=== PATIENT | female | born 1985 ===

== ENCOUNTER 2018-01-01 13:45 | Emergency (ER) | payer OTHER ==
[2018-01-01 15:10] VITALS: BMI 27.6
[2018-01-01] MEDS ORDERED: Sodium Chloride 0.9% 1,000 ML IV ONE (16:03)
--- NOTE | 2018-01-01 16:08 | C.PDOC ---
History Of Present Illness 32-year-old female, currently 8 weeks , presents to the ER complaining of vomiting that has progressively worsened for the past 3 weeks. Also reports vague abdominal discomfort but no vaginal bleeding, dysuria, or discharge. Patient is now having difficulty eating and drinking. She last saw her doctor on 12/23 at which time everything was normal. Next appointment is scheduled for 02/03. PMD: Dr. Crow Vanegas Time Seen by Provider: 01/01/18 15:37 Chief Complaint (Nursing): GI Problem History Per: Patient History/Exam Limitations: no limitations Onset/Duration Of Symptoms: Days (x 3 weeks) Current Symptoms Are (Timing): Still Present Past Medical History Reviewed: Historical Data, Nursing Documentation, Vital Signs Vital Signs: Last Vital Signs Temp 98.6 F 01/01/18 15:10 Pulse 64 01/01/18 19:05 Resp 18 01/01/18 19:05 BP 125/66 01/01/18 19:05 Pulse Ox 96 01/01/18 19:05 - Medical History PMH: No Chronic Diseases Surgical History: Family History: States: No Known Family Hx - Social History Hx Alcohol Use: No Hx Substance Use: No - Immunization History Hx Tetanus Toxoid Vaccination: No Hx Influenza Vaccination: Yes Hx Pneumococcal Vaccination: No Review Of Systems Except As Marked, All Systems Reviewed And Found Negative. Constitutional: Negative for: Fever, Chills Gastrointestinal: Positive for: Nausea, Vomiting, Abdominal Pain (discomfort). Negative for: Diarrhea Genitourinary: Negative for: Dysuria, Hematuria, Vaginal Discharge, Vaginal Bleeding Physical Exam - Physical Exam Appears: Non-toxic, No Acute Distress Skin: Normal Color, Warm, Dry Head: Atraumatic, Normacephalic Eye(s): bilateral: Normal Inspection, PERRL, EOMI Nose: Normal Oral Mucosa: Moist Neck: Normal ROM, Supple Chest: Symmetrical Cardiovascular: Rhythm Regular, No Murmur Respiratory: Normal Breath Sounds, No Accessory Muscle Use Gastrointestinal/Abdominal: Soft, Tenderness (mild suprapubic discomfort), No Guarding Back: Normal Inspection, No CVA Tenderness, No Vertebral Tenderness Extremity: Bilateral: Atraumatic, Normal Color And Temperature, Normal ROM Neurological/Psych: Oriented x3, Normal Speech ED Course And Treatment - Laboratory Results Result Diagrams: 01/01/18 16:26 01/01/18 16:26 Lab Interpretation: No Acute Changes O2 Sat by Pulse Oximetry: 100 (RA) Pulse Ox Interpretation: Normal - CT Scan/US Pelvic Ultrasound Other Rad Studies (CT/US): Read By Radiologist, Radiology Report Reviewed CT/US Interpretation: Accession No. : [id number]. Patient Name / ID : AIYANA ROUSSEAU / [id number]. Exam Date : 01/01/2018 18:24:39 ( Approved ). Study Comment : Sex / Age : F / 32Y. Creator : RACHEL MALONE. Dictator : Extern : Environmental Health Aide : RACHEL MALONE. Approver2 : Report Date : 01/01/2018 19:51:00. My Comment : . [facility] Division of Radiology. [address] [place] [address]. Tel. no. . . . Patient Name: SOHAM BRONSON . Pt. Address: [address] [place] [address] Rec #: [id number]. [place] [address]: Shar BRADLEY, Shira Wood. Pt Order Location: [facility] : 1985 Female Age: 32 Order #: [id number]. Reason for exam: with abd pain. . . . . . Ultrasound. . . 1ST TRIMESTER SINGLE Exam Date: 01/01/18. . This imaging exam was performed at [facility]. EXAM: US First Trimester, Transabdominal. . EXAM DATE/ TIME: 01/01/2018 5:47 PM. . CLINICAL HISTORY: 32 years old, female; Pain; complicated by abdominal or pelvic. pain; Generalized abdominal pain ; First trimester; Gestational age or lmp: [id number]; ; Prior surgery; Surgery date: 6+ months; Surgery type: C. -section; Additional info: with abd pain. . TECHNIQUE: Real-time transabdominal obstetrical ultrasound of the maternal pelvis and a. first trimester with image documentation. . COMPARISON: There are no prior studies for comparison. . FINDINGS: Gestation: There is a single gestational sac in the uterus. Gestational sac. has mean diameter of 44.8 mm. [place] rump length measures approximately 16 mm. There is an embryonic heart rate of 158 beats per minute.A yolk sac is present,. internal diameter measures 3 mm. There is a tiny subchorionic hemorrhage. Uterus: Uterus measures approximately 14 x 5.2 x 7.5 cm. Cervix measures. approximately 3.7 cm in length. Ovaries: Right ovary measures approximately 3.8 x 2.6 x 3 cm. There is a. simple cyst in the right ovary.There is expected blood flow on Doppler imaging. Left ovary measures approximately 3.4 x 1.7 x 3 cm. There are small. follicles.There is expected blood flow on Doppler imaging. Free fluid: There is trace free fluid. Bladder: Bladder is almost empty. . . IMPRESSION: 9 weeks 0 day single living intrauterine gestation, estimated date. of delivery 08/06/18; small subchorionic bleed. . . . . . . . . Dictated By: Rachel Pritchett MD., MD. Dictated Date/Time: 01/01/181950. Signed By: Rachel Schmidt MD. Date Signed: 01/01/181950. Transcribed By: [facility]. Transcribe Date/Time: 01/01/181950. ASHUTOSH/DREAD Reevaluation Time: 20:13 Reassessment Condition: Improved Medical Decision Making Medical Decision Making: Time: 16:03 Initial Plan: * Quantitative beta-HCG * CMP * CBC * Urinalysis * IV fluids * Zofran 4 mg IV Disposition Counseled Patient/Family Regarding: Studies Performed, Diagnosis, Need For Followup - Disposition Referrals: [facility] [Outside] Disposition: HOME/ ROUTINE Disposition Time: 20:14 Condition: STABLE Instructions: Bleeding With Forms: Personal (Arabic) - Clinical Impression Clinical Impression: Bleeding in early - Scribe Statement The provider has reviewed the documentation as recorded by the Sarah Dominguez Provider Attestation: All medical record entries made by the Sarah were at my direction and personally dictated by me. I have reviewed the chart and agree that the record accurately reflects my personal performance of the history, physical exam, medical decision making, and the department course for this patient. I have also personally directed, reviewed, and agree with the discharge instructions and disposition.
[2018-01-01 16:34] LABS: BASO % 0.2 % (0.0-2.0); EOS # 0.1 K/uL (0.0-0.7); EOS % 0.6 % (0.0-4.0); HEMOGLOBIN 12.9 g/dL (11.0-16.0); LYMPH % 18.3 % (20.0-40.0); MEAN CELL VOLUME 84.9 fL (81.0-99.0); MEAN CORPUSCULAR HEMOGLOBIN 27.9 pg (27.0-31.0); MEAN CORPUSCULAR HGB CONC 32.8 g/dL (33.0-37.0); MEAN PLATELET VOLUME 8.5 fL (7.2-11.7); MONO # 0.8 K/uL (0.0-0.8); MONO % 7.5 % (0.0-10.0); NEUT # 8.1 K/uL (1.8-7.0); NEUT % 73.4 % (50.0-75.0); RBC 4.63 Mil/uL (3.80-5.20); RED CELL DISTRIBUTION WIDTH 13.8 % (11.5-14.5); SQUAMOUS EPITHIAL 11 /hpf (0-5); URINE BACTERIA RARE (<OCC); URINE BILIRUBIN NEGATIVE (NEGATIVE); URINE BLOOD NEGATIVE (NEGATIVE); URINE CLARITY Hazy (Clear); URINE COLOR Yellow (YELLOW); URINE GLUCOSE (UA) NORMAL (Normal); URINE LEUKOCYTE ESTERASE TRACE Leu/uL (Negative); URINE NITRATE NEGATIVE (NEGATIVE); URINE PROTEIN 1+ mg/dL (NEGATIVE)
[2018-01-01 16:47] LABS: ALB/GLOB RATIO 1.1 (1.0-2.1); ALBUMIN 4.2 g/dL (3.5-5.0); ALT/SGPT 18 U/L (9-52); AST/SGOT 21 U/L (14-36); BLOOD UREA NITROGEN 9 mg/dL (7-17); CALCIUM 9.5 mg/dl (8.6-10.4); GFR AFRICAN-AMERICAN > 60; GFR NON-AFRICAN AMERICAN > 60
[2018-01-01 19:06] VITALS: RESP 18
--- NOTE | 2018-01-01 19:51 | US ---
EXAM: US First Trimester, Transabdominal EXAM DATE/TIME: 01/01/2018 5:47 PM CLINICAL HISTORY: 32 years old, female; Pain; complicated by abdominal or pelvic pain; Generalized abdominal pain; First trimester; Gestational age or lmp: [id number]; ; Prior surgery; Surgery date: 6+ months; Surgery type: C -section; Additional info: with abd pain TECHNIQUE: Real-time transabdominal obstetrical ultrasound of the maternal pelvis and a first trimester with image documentation. COMPARISON: There are no prior studies for comparison. FINDINGS: Gestation: There is a single gestational sac in the uterus. Gestational sac has mean diameter of 44.8 mm. [place] rump length measures approximately 16 mm There is an embryonic heart rate of 158 beats per minute.A yolk sac is present, internal diameter measures 3 mm. There is a tiny subchorionic hemorrhage. Uterus: Uterus measures approximately 14 x 5.2 x 7.5 cm. Cervix measures approximately 3.7 cm in length. Ovaries: Right ovary measures approximately 3.8 x 2.6 x 3 cm. There is a simple cyst in the right ovary.There is expected blood flow on Doppler imaging Left ovary measures approximately 3.4 x 1.7 x 3 cm. There are small follicles.There is expected blood flow on Doppler imaging Free fluid: There is trace free fluid. Bladder: Bladder is almost empty. IMPRESSION: 9 weeks 0 day single living intrauterine gestation, estimated date of delivery 08/06/18; small subchorionic bleed
[2018-01-01 20:40] VITALS: BP 138/69; PULSE 86; TEMP 98; O2SAT 98
== END 2018-01-01 20:40 | disposition home or self-care (01) ==
LOC: C.ER 13:45
DX: O20.9 Hemorrhage in early pregnancy, unspecified (principal); Z3A.09 9 weeks gestation of pregnancy
CPT/HCPCS: 76801; 80053; 81001; 84702; 85025; 96361; 96374; 99285; J2405; J7040

== ENCOUNTER 2018-01-11 09:31 | Emergency (ER) | payer OTHER ==
[2018-01-11 09:31] VITALS: BMI 27.6
[2018-01-11 10:18] LABS: HCG,QUALITATIVE URINE POSITIVE (NEGATIVE)
[2018-01-11 10:22] LABS: BASO % 0.3 % (0.0-2.0); EOS # 0.1 K/uL (0.0-0.7); EOS % 0.7 % (0.0-4.0); HEMOGLOBIN 13.6 g/dL (11.0-16.0); LYMPH # 1.9 K/uL (1.0-4.3); LYMPH % 22.2 % (20.0-40.0); MEAN CELL VOLUME 84.3 fL (81.0-99.0); MEAN CORPUSCULAR HGB CONC 33.2 g/dL (33.0-37.0); MEAN PLATELET VOLUME 8.9 fL (7.2-11.7); MONO # 0.6 K/uL (0.0-0.8); MONO % 6.5 % (0.0-10.0); NEUT # 6.1 K/uL (1.8-7.0); NEUT % 70.3 % (50.0-75.0); RBC 4.87 Mil/uL (3.80-5.20); RED CELL DISTRIBUTION WIDTH 13.5 % (11.5-14.5); WHITE BLOOD COUNT 8.7 K/uL (4.8-10.8)
[2018-01-11] MEDS ORDERED: Sodium Chloride 0.9% 1,000 ML ONE ×2 (10:30→13:35)
[2018-01-11 10:35] LABS: SQUAMOUS EPITHIAL 22 /hpf (0-5); URINE BACTERIA OCC (<OCC); URINE BILIRUBIN NEGATIVE (NEGATIVE); URINE BLOOD NEGATIVE (NEGATIVE); URINE CLARITY Hazy (Clear); URINE GLUCOSE (UA) 1+ mg/dL (Normal); URINE LEUKOCYTE ESTERASE NEG Leu/uL (Negative); URINE PROTEIN 1+ mg/dL (NEGATIVE)
[2018-01-11 10:40] LABS: ALBUMIN 4.1 g/dL (3.5-5.0); ALT/SGPT 17 U/L (9-52); AST/SGOT 27 U/L (14-36); BLOOD UREA NITROGEN 6 mg/dL (7-17); CALCIUM 9.8 mg/dl (8.6-10.4); GFR AFRICAN-AMERICAN > 60; GFR NON-AFRICAN AMERICAN > 60
[2018-01-11 10:41] LABS: URINE COLOR YELLOW (YELLOW)
[2018-01-11] MEDS ORDERED: Sodium Chloride 0.9% 1,000 ML IV STA ×2 (12:30→13:16)
[2018-01-11] MEDS ORDERED: DiphenhydrAMINE 50 mg/ml Inj IVP STA (12:46)
[2018-01-11] MEDS ORDERED: DiphenhydrAMINE 50 mg/ml Inj ONE (12:47)
--- NOTE | 2018-01-11 12:49 | C.PDOC ---
History Of Present Illness 32 year old female presents to the emergency department with a complaint of nausea, vomiting, and morning sickness in setting of known second . Patient states she is not able to drink enough and is urinating less. She cannot hold nothing down. Reports it was the same during her first . Denies any further medical complaints. Time Seen by Provider: 01/11/18 10:00 Chief Complaint (Nursing): Abdominal Pain History Per: Patient History/Exam Limitations: no limitations Past Medical History Reviewed: Historical Data, Nursing Documentation, Vital Signs Vital Signs: Last Vital Signs Temp 98.5 F 01/11/18 12:22 Pulse 83 01/11/18 12:22 Resp 18 01/11/18 12:22 BP 98/65 L 01/11/18 12:22 Pulse Ox 99 01/11/18 12:22 - Medical History PMH: No Chronic Diseases Surgical History: - Social History Hx Alcohol Use: No Hx Substance Use: No - Immunization History Hx Tetanus Toxoid Vaccination: No Hx Influenza Vaccination: Yes Hx Pneumococcal Vaccination: No Review Of Systems Except As Marked, All Systems Reviewed And Found Negative. (As per HPI, othewise negative) Constitutional: Positive for: Other (Morning sickness and urinating less) Gastrointestinal: Positive for: Nausea, Vomiting Physical Exam - Physical Exam Appears: Well, Non-toxic, Toxic Skin: Normal Color, Warm, Dry Head: Atraumatic, Normacephalic Tongue: Normal Appearing Lips: Normal Appearing Teeth: Normal Dentition Gingiva: Normal Appearing Throat: Normal Cardiovascular: Rhythm Regular, No Murmur Respiratory: Normal Breath Sounds, No Decreased Breath Sounds, No Accessory Muscle Use Gastrointestinal/Abdominal: Normal Exam, Soft, No Tenderness Extremity: Normal ROM, No Tenderness, No Pedal Edema Neurological/Psych: Oriented x3 Gait: Steady ED Course And Treatment - Laboratory Results Result Diagrams: 01/11/18 10:15 01/11/18 10:15 O2 Sat by Pulse Oximetry: 99 (RA) Pulse Ox Interpretation: Normal Medical Decision Making Medical Decision Making: Time: 1000 --Beta-HCG, quantitative --CMP --CBC w/ diff --Zofran 4 mg IVP --Reevaluation Time: 1246 --Beta-HC.00 --Reassessment shows that patient develoepd urtical rash to the right arm after taking Zofran. Will be given Benadryl for allergy. --Benadryl 25 mg IVP --Sodium Chloride 1L --urinalysis Disposition - Disposition
--- NOTE | 2018-01-11 13:02 | C.PDOC ---
History Of Present Illness 32 year old female presents to the emergency department with a complaint of nausea, vomiting, and morning sickness in setting of known second . Patient states she is not able to drink enough and is urinating less. She cannot hold nothing down. Reports it was the same during her first . Denies any further medical complaints. Time Seen by Provider: 01/11/18 10:00 Chief Complaint (Nursing): Abdominal Pain History Per: Patient History/Exam Limitations: no limitations Past Medical History Reviewed: Historical Data, Nursing Documentation, Vital Signs Vital Signs: Last Vital Signs Temp 98.5 F 01/11/18 14:42 Pulse 68 01/11/18 15:53 Resp 18 01/11/18 15:53 BP 100/60 01/11/18 15:53 Pulse Ox 98 01/11/18 15:53 - Medical History PMH: No Chronic Diseases Surgical History: Family History: States: No Known Family Hx - Social History Hx Alcohol Use: No Hx Substance Use: No - Immunization History Hx Tetanus Toxoid Vaccination: No Hx Influenza Vaccination: Yes Hx Pneumococcal Vaccination: No Review Of Systems Except As Marked, All Systems Reviewed And Found Negative. (As per HPI, othewise negative) Constitutional: Positive for: Other (morning sickness and urinating less) Gastrointestinal: Positive for: Nausea, Vomiting Physical Exam - Physical Exam Appears: Well, Non-toxic, Toxic Skin: Normal Color, Warm, Dry Head: Atraumatic Tongue: Normal Appearing Lips: Normal Appearing Teeth: Normal Dentition Gingiva: Normal Appearing Throat: Normal Cardiovascular: Rhythm Regular, No Murmur Respiratory: Normal Breath Sounds, No Decreased Breath Sounds, No Accessory Muscle Use Gastrointestinal/Abdominal: Normal Exam, Soft, No Tenderness Extremity: Normal ROM, No Pedal Edema Neurological/Psych: Oriented x3 Gait: Steady ED Course And Treatment - Laboratory Results Result Diagrams: 01/11/18 10:15 01/11/18 10:15 O2 Sat by Pulse Oximetry: 100 (RA) Pulse Ox Interpretation: Normal Medical Decision Making Medical Decision Making: Time: 1000 --Beta-HCG, quantitative --CMP --CBC w/ diff --Zofran 4 mg IVP --Reevaluation Time: 1246 --Beta-HC.00 --Reassessment shows that patient develoepd urtical rash to the right arm after taking Zofran. Will be given Benadryl for allergy. --Benadryl 25 mg IVP --Sodium Chloride 1L --urinalysis Patient tolerated oral fluid, sts she feels better and is ready to be d/c home with OBGYN follow up. Disposition - Disposition Referrals: Crow Vanegas MD [Medical Doctor] - Disposition: HOME/ ROUTINE Disposition Time: 15:35 Condition: IMPROVED Additional Instructions: Follow up with OBGYN within 1-2 days. Return to ED if feel worse. Prescriptions: Doxylamine/Pyridoxine HCl (B6) [Tim Zamarripa 10-10 mg Tablet] 1 each PO PRN PRN # 40 tablet.dr PRN Reason: Nausea/Vomiting Metoclopramide [Reglan] 1 tab PO TID PRN #25 tab PRN Reason: Nausea/Vomiting Instructions: Nausea and Vomiting of Forms: [facility] (Hebrew) Print Language: JAPANESE - Clinical Impression Clinical Impression: Vomiting of
[2018-01-11 14:42] VITALS: RESP 18; TEMP 98.5
[2018-01-11 15:54] VITALS: BP 100/60; PULSE 68
[2018-01-11 16:32] VITALS: O2SAT 100
== END 2018-01-11 15:54 | disposition home or self-care (01) ==
LOC: C.ER 09:31
DX: O21.9 Vomiting of pregnancy, unspecified (principal); Z3A.00 Weeks of gestation of pregnancy not specified
CPT/HCPCS: 80053; 81001; 84702; 84703; 85025; 87086; 96361; 96365; 96375; 99285; J1200; J2405; J2765; J7040

== ENCOUNTER 2019-01-13 09:21 | Outpatient (CLI) | payer OTHER | END 2019-01-13 09:22 | disposition home or self-care (01) | LOC: C.LAB 09:21 | DX: Z00.01 Encounter for general adult medical examination with abnormal findings (principal); R45.89 Other symptoms and signs involving emotional state; J35.1 Hypertrophy of tonsils; E04.9 Nontoxic goiter, unspecified ==

== ENCOUNTER 2019-03-26 18:00 | Inpatient (IN) | payer OTHER ==
[2019-03-26 18:00] VITALS: BMI 27.6
[2019-03-26] MEDS ORDERED: Sodium Chloride 0.9% 1,000 ML IV ONE (19:29)
--- NOTE | 2019-03-26 19:29 | C.PDOC ---
History Of Present Illness Patient presents with sharp stabbing epigastric pain since earlier today associated with five episodes of vomiting. Denies fever or chills. Patient states this has happened before, usually self limits however could not this time. Time Seen by Provider: 03/26/19 19:29 Chief Complaint (Nursing): Abdominal Pain History Per: Patient History/Exam Limitations: no limitations Onset/Duration Of Symptoms: Hrs Current Symptoms Are (Timing): Still Present Severity: Moderate Pain Scale Rating Of: 6 Location Of Pain/Discomfort: Epigastric Radiation Of Pain To:: None Quality Of Discomfort: Sharp, Stabbing Associated Symptoms: Vomiting. denies: Fever, Chills Exacerbating Factors: None Alleviating Factors: None Recent travel outside of the [place]: No Abnormal Vaginal Bleeding: No Past Medical History Reviewed: Historical Data, Nursing Documentation, Vital Signs Vital Signs: Last Vital Signs Temp 99.4 F 03/26/19 18:09 Pulse 77 03/26/19 18:09 Resp 20 03/26/19 18:09 BP 96/58 L 03/26/19 18:09 Pulse Ox 96 03/26/19 18:09 Primary Care Provider: Non [facility] Provider, Surgical History: Family History: States: No Known Family Hx - Social History Hx Alcohol Use: No Hx Substance Use: No - Immunization History Hx Tetanus Toxoid Vaccination: No Hx Influenza Vaccination: Yes Hx Pneumococcal Vaccination: No Review Of Systems Constitutional: Negative for: Fever, Chills Cardiovascular: Negative for: Chest Pain, Palpitations Respiratory: Negative for: Cough, Shortness of Breath Gastrointestinal: Positive for: Vomiting, Abdominal Pain Neurological: Negative for: Weakness, Numbness Physical Exam - Physical Exam Appears: Non-toxic Skin: Warm, Dry Head: Normacephalic Eye(s): bilateral: Normal Inspection Oral Mucosa: Dry Neck: Trachea Midline, Supple Chest: Symmetrical, No Tenderness Cardiovascular: Rhythm Regular Respiratory: No Rales, No Rhonchi, No Wheezing Gastrointestinal/Abdominal: Soft, Tenderness (Epigastric), No Guarding, No Rebound Back: No CVA Tenderness Extremity: No Tenderness Extremity: Bilateral: Atraumatic, Normal Color And Temperature, Normal ROM Pulses: Left Dorsalis Pedis: Normal, Right Dorsalis Pedis: Normal Neurological/Psych: Oriented x3 Gait: Steady ED Course And Treatment - Laboratory Results Result Diagrams: 03/26/19 20:03 03/26/19 20:03 O2 Sat by Pulse Oximetry: 96 (Room air) Pulse Ox Interpretation: Normal Progress Note: EKG, blood work, and urinalysis ordered. IV fluids, morphine, pepcid, toradol, and zofran administered. Disposition Discussed With Dr.: Karlos Lucas Comment: accepted the pt onher service and took over the care at 12:27AM Doctor Will See Patient In The: ED Counseled Patient/Family Regarding: Studies Performed, Diagnosis - Disposition Disposition: HOSPITALIZED Disposition Time: 19:29 Condition: FAIR Forms: [employer] (Ghanaian) - POA Present On Arrival: Poor Glycemic Control - Clinical Impression Clinical Impression: Abdominal pain, Nausea, Acute pancreatitis - Scribe Statement The provider has reviewed the documentation as recorded by the Scribe Donny Bolanos All medical record entries made by the Scribe were at my direction and personally dictated by me. I have reviewed the chart and agree that the record accurately reflects my personal performance of the history, physical exam, medical decision making, and the department course for this patient. I have also personally directed, reviewed, and agree with the discharge instructions and disposition. Decision To Admit - Pt Status Changed To: Hospital Disposition Of: Inpatient - Admit Certification Admit to Inpatient:: After my assessment, the patient will require hospitalization for at least two midnights. This is because of the severity of symptoms shown, intensity of services needed, and/or the medical risk in this patient being treated as an outpatient. - InPatient: Physician Admission Certification:: After my assessment, the patient will require hospitalization for at least two midnights. This is because of the severity of symptoms shown, intensity of services needed, and/or the medical risk in this patient being treated as an outpatient. - . Bed Request Type: Regular Admitting Physician: Karlos Lucas (') Patient Diagnosis: Abdominal pain, Nausea, Acute pancreatitis
[2019-03-26] MEDS ORDERED: Sodium Chloride 0.9% 1,000 ML ONE (19:38)
[2019-03-26 20:09] LABS: BASO % 0.4 % (0.0-2.0); EOS % 0.3 % (0.0-4.0); HEMOGLOBIN 13.3 g/dL (11.0-16.0); LYMPH # 1.2 K/uL (1.0-4.3); LYMPH % 11.5 % (20.0-40.0); MEAN CELL VOLUME 82.1 fL (81.0-99.0); MEAN CORPUSCULAR HEMOGLOBIN 26.8 pg (27.0-31.0); MEAN CORPUSCULAR HGB CONC 32.6 g/dL (33.0-37.0); MEAN PLATELET VOLUME 9.4 fL (7.2-11.7); MONO # 0.4 K/uL (0.0-0.8); MONO % 3.6 % (0.0-10.0); NEUT # 8.6 K/uL (1.8-7.0); NEUT % 84.2 % (50.0-75.0); NRBC % 0.1 % (0.0-2.0); RBC 4.99 Mil/uL (3.80-5.20); RED CELL DISTRIBUTION WIDTH 13.8 % (11.5-14.5); WHITE BLOOD COUNT 10.2 K/uL (4.8-10.8)
[2019-03-26 20:15] LABS: HCG,QUALITATIVE URINE NEGATIVE (NEGATIVE)
[2019-03-26 20:21] LABS: SQUAMOUS EPITHIAL 9 /hpf (0-5); URINE BILIRUBIN NEGATIVE (NEGATIVE); URINE BLOOD NEGATIVE (NEGATIVE); URINE CLARITY Hazy (Clear); URINE COLOR Yellow (YELLOW); URINE GLUCOSE (UA) NORMAL (Normal); URINE LEUKOCYTE ESTERASE NEG Leu/uL (Negative); URINE PROTEIN NEGATIVE (NEGATIVE)
[2019-03-26 20:35] LABS: ALB/GLOB RATIO 1.3 (1.0-2.1); ALBUMIN 4.3 g/dL (3.5-5.0); ALT/SGPT 150 U/L (9-52); AST/SGOT 239 U/L (14-36); BLOOD UREA NITROGEN 9 mg/dL (7-17); CALCIUM 9.5 mg/dl (8.6-10.4); GFR NON-AFRICAN AMERICAN > 60
[2019-03-26 20:37] LABS: INR 1.1; PARTIAL THROMBOPLASTIN TIME 31.7 SECONDS (21-34); PROTHROMBIN TIME 11.8 SECONDS (9.7-12.2)
[2019-03-26] MEDS ORDERED: Iodixanol 320 MG/ML 100 ML BOTTLE IV ONE (21:05)
[2019-03-27 00:03] LABS: LIPASE > 40000 U/L (23-300)
--- NOTE | 2019-03-27 00:29 | CP.PCM.HP ---
<Yesenia Welch - Last Filed: 03/27/19 01:34> History of Present Illness - History of Present Illness History of Present Illness: cc: abdominal pain, vomiting Patient is a 34 year old female with no significant pmhx who presents tot he ED accompanied by her with complaints of severe abdominal pain that started this afternoon followed by many episodes of vomiting. Patient reports similar symptoms of epigastric pain that radiates bilaterally over the past month, lasting approx 15 minutes and then self resolve. Patient reports today's episode was greater in severity with pain in epigastrium radiating laterally as well as lower abdominal pain, and accompanied by 8 episodes of NBNB vomiting. Patient denies history of gallstones or pancreatitis, denies excessive alcohol consumption. Denies chest pain, SOB, diarrhea. pmhx: thyroid nodule, significance unknown pshx: x2, thyroid bx meds: multivitamin allergies: NKDA sochx: social alcohol use(last on saturday), denies tobacco/drug use, lives with family famhx: denies LMP 03/06 Present on Admission - Present on Admission Any Indicators Present on Admission: No Review of Systems - Constitutional Constitutional: absent: Chills, Fever - Cardiovascular Cardiovascular: absent: Chest Pain, Palpitations - Respiratory Respiratory: absent: Cough, Dyspnea - Gastrointestinal Gastrointestinal: Abdominal Pain, Nausea, Vomiting. absent: Constipation, Diarrhea, Hematemesis, Hematochezia, Melena - Genitourinary Genitourinary: absent: Difficulty Urinating, Dysuria - Integumentary Integumentary: absent: Unusual Bruising Past Patient History - Infectious Disease Hx of Infectious Diseases: None - Past Social History Smoking Status: Never Smoked - PSYCHIATRIC Hx Substance Use: No - SURGICAL HISTORY Hx Surgeries: Yes Hx Section: Yes (x1) - ANESTHESIA Hx Anesthesia: Yes Hx Anesthesia Reactions: No Meds Allergies/Adverse Reactions: Allergies Allergy/AdvReac Type Severity Reaction Status Date / Time No Known Allergies Allergy Verified 03/26/19 18:09 Physical Exam - Constitutional Appears: Non-toxic, No Acute Distress - Head Exam Head Exam: ATRAUMATIC, NORMAL INSPECTION, NORMOCEPHALIC - Eye Exam Eye Exam: EOMI, Normal appearance Pupil Exam: NORMAL ACCOMODATION, PERRL - ENT Exam ENT Exam: Mucous Membranes Moist, Normal Exam - Neck Exam Neck exam: Positive for: Normal Inspection - Respiratory Exam Respiratory Exam: Clear to Auscultation Bilateral, NORMAL BREATHING PATTERN - Cardiovascular Exam Cardiovascular Exam: REGULAR RHYTHM, +S1, +S2. absent: Tachycardia - GI/Abdominal Exam GI & Abdominal Exam: Normal Bowel Sounds, Soft, Tenderness. absent: Distended Additional comments: TTP epigastrium, LUQ, RUQ - Extremities Exam Extremities exam: Positive for: normal inspection. Negative for: calf tenderness, pedal edema - Back Exam Back exam: NORMAL INSPECTION - Neurological Exam Neurological exam: Alert, Oriented x3 - Psychiatric Exam Psychiatric exam: Normal Affect, Normal Mood - Skin Skin Exam: Dry, Intact, Normal Color, Warm Results - Vital Signs Recent Vital Signs: Last Vital Signs Temp 99.4 F 03/26/19 18:09 Pulse 77 03/26/19 18:09 Resp 20 03/26/19 18:09 BP 96/58 L 03/26/19 18:09 Pulse Ox 96 03/27/19 00:27 - Labs Result Diagrams: 03/26/19 20:03 03/26/19 20:03 Labs: Laboratory Results - last 24 hr 03/26/19 03/26/19 03/26/19 20:03 20:03 20:03 WBC 10.2 D RBC 4.99 Hgb 13.3 Hct 40.9 MCV 82.1 D MCH 26.8 L MCHC 32.6 L RDW 13.8 Plt Count 225 MPV 9.4 Neut % (Auto) 84.2 H Lymph % (Auto) 11.5 L [place] % (Auto) 3.6 Eos % (Auto) 0.3 Baso % (Auto) 0.4 Neut # (Auto) 8.6 H Lymph # (Auto) 1.2 [place] # (Auto) 0.4 Eos # (Auto) 0.0 Baso # (Auto) 0.0 PT 11.8 INR 1.1 APTT 31.7 Sodium Potassium Chloride Carbon Dioxide Anion Gap BUN Creatinine Est GFR ( Amer) Est GFR (Non-Af Amer) Random Glucose Calcium Total Bilirubin AST ALT Alkaline Phosphatase Total Protein Albumin Globulin Albumin/Globulin Ratio Lipase Urine Color Yellow Urine Clarity Hazy Urine pH 9.0 Ur Specific [place] 1.010 Urine Protein Negative Urine Glucose (UA) Normal Urine Ketones Trace Urine Blood Negative Urine Nitrate Negative Urine Bilirubin Negative Urine Urobilinogen 2.0 H Ur Leukocyte Esterase Neg Urine WBC (Auto) < 1 Urine RBC (Auto) < 1 Ur Squamous Epith Cells 9 H Urine HCG, Qual Negative 03/26/19 20:03 WBC RBC Hgb Hct MCV MCH MCHC RDW Plt Count MPV Neut % (Auto) Lymph % (Auto) [place] % (Auto) Eos % (Auto) Baso % (Auto) Neut # (Auto) Lymph # (Auto) [place] # (Auto) Eos # (Auto) Baso # (Auto) PT INR APTT Sodium 139 Potassium 3.6 Chloride 101 Carbon Dioxide 27 Anion Gap 15 BUN 9 Creatinine 0.6 L Est GFR ( Amer) > 60 Est GFR (Non-Af Amer) > 60 Random Glucose 121 H D Calcium 9.5 Total Bilirubin 1.1 AST 239 H D ALT 150 H D Alkaline Phosphatase 99 Total Protein 7.6 Albumin 4.3 Globulin 3.4 Albumin/Globulin Ratio 1.3 Lipase > 32528 H Urine Color Urine Clarity Urine pH Ur Specific [place] Urine Protein Urine Glucose (UA) Urine Ketones Urine Blood Urine Nitrate Urine Bilirubin Urine Urobilinogen Ur Leukocyte Esterase Urine WBC (Auto) Urine RBC (Auto) Ur Squamous Epith Cells Urine HCG, Qual Assessment & Plan (1) Acute pancreatitis Assessment and Plan: CT A/P(03/26/19): prelim read GB is predominantly decompressed however demonstrates wall thickening and/or pericholecystic fluid. There is suggestion of a small gallstone near the fundus. There is fatty stranding and a small amount of fluid near the pancreas most compatible with acute pancreatitis. No organized fluid collection seen. Suggestion of possible wall thickening at the distal rectum, versus under- distension. Questionable focal narrowing versus focal contraction slightly more proximally in the rectum. Mild constipation more proximally in the colon -f/u official report -no leukocytosis, hyperglycemia, age<55, glucose<200, AST<250, LDH unknown. Bruce's score on admission: 0~unlikely severe pancreatitis -lipase> 40,000 -NPO -IVF; NS @150 -pain medication prn: Toradol moderate, morphine severe -antiemetics: zofran prn -f/u RUQ US, r/o gallstone pancreatitis -f/u lipase, amylase, LDH -GI consult, Dr. Ruby Status: Acute (2) Prophylactic measure Assessment and Plan: GI: protonix ivp VTE: SCDs Status: Acute - Assessment and Plan (Free Text) Assessment: Discussed w/ Dr. Lucas -Yesenia Welch, PGY-1 <Karlos Lucas - Last Filed: 03/27/19 04:16> Results - Vital Signs Recent Vital Signs: Last Vital Signs Temp 97.9 F 03/27/19 01:00 Pulse 62 03/27/19 01:00 Resp 20 03/27/19 01:00 BP 112/75 03/27/19 01:00 Pulse Ox 98 03/27/19 01:00 - Labs Result Diagrams: 03/26/19 20:03 03/26/19 20:03 Labs: Laboratory Results - last 24 hr 03/26/19 03/26/19 03/26/19 20:03 20:03 20:03 WBC 10.2 D RBC 4.99 Hgb 13.3 Hct 40.9 MCV 82.1 D MCH 26.8 L MCHC 32.6 L RDW 13.8 Plt Count 225 MPV 9.4 Neut % (Auto) 84.2 H Lymph % (Auto) 11.5 L [place] % (Auto) 3.6 Eos % (Auto) 0.3 Baso % (Auto) 0.4 Neut # (Auto) 8.6 H Lymph # (Auto) 1.2 [place] # (Auto) 0.4 Eos # (Auto) 0.0 Baso # (Auto) 0.0 PT 11.8 INR 1.1 APTT 31.7 Sodium Potassium Chloride Carbon Dioxide Anion Gap BUN Creatinine Est GFR ( Amer) Est GFR (Non-Af Amer) Random Glucose Calcium Total Bilirubin AST ALT Alkaline Phosphatase Total Protein Albumin Globulin Albumin/Globulin Ratio Lipase Urine Color Yellow Urine Clarity Hazy Urine pH 9.0 Ur Specific [place] 1.010 Urine Protein Negative Urine Glucose (UA) Normal Urine Ketones Trace Urine Blood Negative Urine Nitrate Negative Urine Bilirubin Negative Urine Urobilinogen 2.0 H Ur Leukocyte Esterase Neg Urine WBC (Auto) < 1 Urine RBC (Auto) < 1 Ur Squamous Epith Cells 9 H Urine HCG, Qual Negative 03/26/19 20:03 WBC RBC Hgb Hct MCV MCH MCHC RDW Plt Count MPV Neut % (Auto) Lymph % (Auto) [place] % (Auto) Eos % (Auto) Baso % (Auto) Neut # (Auto) Lymph # (Auto) [place] # (Auto) Eos # (Auto) Baso # (Auto) PT INR APTT Sodium 139 Potassium 3.6 Chloride 101 Carbon Dioxide 27 Anion Gap 15 BUN 9 Creatinine 0.6 L Est GFR ( Amer) > 60 Est GFR (Non-Af Amer) > 60 Random Glucose 121 H D Calcium 9.5 Total Bilirubin 1.1 AST 239 H D ALT 150 H D Alkaline Phosphatase 99 Total Protein 7.6 Albumin 4.3 Globulin 3.4 Albumin/Globulin Ratio 1.3 Lipase > 61050 H Urine Color Urine Clarity Urine pH Ur Specific [place] Urine Protein Urine Glucose (UA) Urine Ketones Urine Blood Urine Nitrate Urine Bilirubin Urine Urobilinogen Ur Leukocyte Esterase Urine WBC (Auto) Urine RBC (Auto) Ur Squamous Epith Cells Urine HCG, Qual Attending/Attestation - Attestation I have fully participated in the care of the patient.: Yes I have reviewed all pertinent clinical information: Yes Notes (Text): 03/27/19 04:15 pt was personally seen and maneged with resident by me.
[2019-03-27] MEDS: Sodium Chloride 0.9% 1,000 ML IV SCH ×2 (01:24→09:53)
[2019-03-27 07:41] LABS: BASO % 0.2 % (0.0-2.0); EOS # 0.1 K/uL (0.0-0.7); EOS % 0.8 % (0.0-4.0); HEMOGLOBIN 11.4 g/dL (11.0-16.0); LYMPH # 1.6 K/uL (1.0-4.3); LYMPH % 20.4 % (20.0-40.0); MEAN CELL VOLUME 83.5 fL (81.0-99.0); MEAN CORPUSCULAR HEMOGLOBIN 27.8 pg (27.0-31.0); MEAN CORPUSCULAR HGB CONC 33.3 g/dL (33.0-37.0); MEAN PLATELET VOLUME 9.5 fL (7.2-11.7); MONO # 0.5 K/uL (0.0-0.8); MONO % 5.9 % (0.0-10.0); NEUT # 5.8 K/uL (1.8-7.0); NEUT % 72.7 % (50.0-75.0); RBC 4.1 Mil/uL (3.80-5.20); RED CELL DISTRIBUTION WIDTH 13.6 % (11.5-14.5)
[2019-03-27 08:05] LABS: ALB/GLOB RATIO 1.2 (1.0-2.1); ALBUMIN 3.3 g/dL (3.5-5.0); ALT/SGPT 115 U/L (9-52); AST/SGOT 111 U/L (14-36); BLOOD UREA NITROGEN 9 mg/dL (7-17); CALCIUM 8.3 mg/dl (8.6-10.4); GFR NON-AFRICAN AMERICAN > 60
[2019-03-27 08:19] LABS: AMYLASE 1459 U/L (30-110)
[2019-03-27 08:40] LABS: LIPASE 5763 U/L (23-300)
--- NOTE | 2019-03-27 08:45 | CT ---
CT abdomen and pelvis HISTORY: Abdominal pain. Elevated liver enzymes. COMPARISON: None available. TECHNIQUE: Multiple contiguous axial images were performed through the abdomen and pelvis with the use of intravenous contrast. Subsequently, sagittal and coronal reformatted images were obtained. This CT exam was performed using one or more of the following dose reduction techniques: Automated exposure control, adjustment of the mA and/or kV according to patient size, and/or use of iterative reconstruction technique. Findings: Lung bases are clear. No pleural or pericardial effusion. Mild intrahepatic biliary ductal dilatation. Cholelithiasis with echogenic focus measuring 4 millimeters at the dependent wall of the gallbladder. Associated gallbladder wall thickening and pericholecystic fluid. These findings may represent an acute cholecystitis. Clinical correlation. Correlation with right upper abdominal ultrasound may be helpful if clinically indicated. Spleen is preserved. Adrenal glands are preserved. Thickened and edematous pancreas with associated peripancreatic fat stranding and fluid suggestive for an acute pancreatitis. Associated reactive thickening of the 2nd portion of the duodenum. Upper abdominal bowel is grossly preserved. Right kidney: No gross calculi or hydronephrosis. Left Kidney: No gross calculi or hydronephrosis. Urinary bladder is preserved. Free fluid within the pelvic cul-de-sac. Heterogeneous uterus and endometrium. Mild thickening of the rectum. Fecal retention in the colon. Appendix is within normal limits. Few shotty para-aortic and inguinal lymph nodes. Few shotty mesenteric lymph nodes. Degenerative changes in the spine. Impression: 1. Findings suggestive for an acute pancreatitis as described above with reactive thickening at the 2nd portion of the duodenum. Clinical correlation. 2. Findings concerning for possible acute cholecystitis. Correlation with right upper quadrant abdominal ultrasound and/or nuclear medicine study may be helpful if clinically indicated. Clinical correlation. 3. Rectal wall thickening. Question focal narrowing versus focal contraction slightly more proximally near the rectum. It is difficult to exclude stricture and/or mass in these regions. Please correlate clinically and if indicated this could be further evaluated with colonoscopy. Clinical correlation. Additional findings as above. A preliminary report was generated at 10:19 p.m. on 03/26/[address] Long Horne from [employer].
--- NOTE | 2019-03-27 09:36 | US ---
Date of service: 03/27/2019 HISTORY: acute pancreatitis, r/o gallstone COMPARISON: None. TECHNIQUE: Sonographic evaluation of the right upper quadrant of the abdomen. FINDINGS: LIVER: Measures 18.7 cm in length. Diffusely increased echogenicity of the liver parenchyma. Consistent with fatty infiltration contour. No mass. No biliary ductal dilatation. GALLBLADDER: Cholelithiasis. No mural thickening. No pericholecystic fluid. Negative sonographic Razo sign. COMMON BILE DUCT: Measures 4 mm. No stones. No dilatation. PANCREAS: Unremarkable as visualized. No mass. No ductal dilatation. RIGHT KIDNEY: Measures 11.7 cm in length. Normal echogenicity. No calculus, mass, or hydronephrosis. AORTA: No aneurysmal dilatation. IVC: Unremarkable. OTHER FINDINGS: None . IMPRESSION: Fatty infiltration liver. Mild hepatomegaly. Cholelithiasis without sonographic evidence of cholecystitis.
[2019-03-27] MEDS ORDERED: Sodium Chloride 0.9% 1,000 ML IV SCH (10:50)
[2019-03-27] MEDS: Lactated Ringer's 1,000 ML IV SCH ×3 (12:08→22:06)
--- NOTE | 2019-03-27 12:23 | CP.PCM.PN ---
<Froy Meeks - Last Filed: 03/27/19 12:28> Subjective - Date & Time of Evaluation Date of Evaluation: 03/27/19 Time of Evaluation: 12:26 - Subjective Subjective: PGY-[address] Yosef Romero Patient seen and examined at bedside. No acute events overnight. Patient reports abdomianl pain is improved, but still present. Denies nausea, vomiting, or diarrhea at present. NPO. Denies chest pain, shortness of breath, headache, abdominal pain, dizziness, numbness, tingling. Objective - Vital Signs/Intake and Output Vital Signs (last 24 hours): Temp Pulse Resp BP Pulse Ox 97.0 F L 66 20 100/64 99 03/27/19 07:00 03/27/19 07:00 03/27/19 07:00 03/27/19 07:00 03/27/19 07:00 Intake and Output: 03/27/19 03/27/19 06:59 18:59 Intake Total 950 Balance 950 - Medications Medications: Current Medications Lactated Ringer's (Lactated Ringer's) 1,000 mls @ 200 mls/hr IV .Q5H COUNT INCLUDES THE [facility] Ketorolac Tromethamine (Toradol) 30 mg IV Q6 PRN PRN Reason: Pain, moderate (4-7) Morphine Sulfate (Morphine) 2 mg IVP Q4H PRN PRN Reason: Pain, severe (8-10) Ondansetron HCl (Zofran Inj) 4 mg IVP Q6 PRN PRN Reason: Nausea/Vomiting Pantoprazole Sodium (Protonix Inj) 40 mg IVP DAILY COUNT INCLUDES THE [facility] Last Admin: 03/27/19 09:53 Dose: 40 mg - Labs Labs: 03/27/19 07:32 03/27/19 07:32 PT 11.8 SECONDS (9.7-12.2) 03/26/19 20:03 INR 1.1 03/26/19 20:03 APTT 31.7 SECONDS (21-34) 03/26/19 20:03 - Constitutional Appears: Non-toxic, No Acute Distress - Head Exam Head Exam: ATRAUMATIC, NORMOCEPHALIC - Eye Exam Eye Exam: EOMI, Normal appearance - ENT Exam ENT Exam: Mucous Membranes Moist - Respiratory Exam Respiratory Exam: Clear to Ausculation Bilateral, NORMAL BREATHING PATTERN. absent: Rales, Wheezes - Cardiovascular Exam Cardiovascular Exam: REGULAR RHYTHM, +S1, +S2 - GI/Abdominal Exam GI & Abdominal Exam: Soft, Tenderness (diffusely moderately tender), Normal Bowel Sounds. absent: Distended - Extremities Exam Extremities Exam: absent: Pedal Edema, Tenderness - Neurological Exam Neurological Exam: Alert, Awake, Oriented x3 - Skin Skin Exam: Dry, Intact Assessment and Plan - Assessment and Plan (Free Text) Assessment: 34 y/o F with no PMHx presents with abdominal pain, found to have acute pancreatitis on CT with initial lipase >40,000 Acute pancreatitis, possibly 2/[address] A/P(03/26/19): 1. Findings suggestive for an acute pancreatitis as described above with reactive thickening at the 2nd portion of the duodenum. Clinical correlation. 2. Findings concerning for possible acute cholecystitis. Correlati on with right upper quadrant abdominal ultrasound and/or nuclear medicine study may be helpful if clinically indicated. Clinical correlation. 3. Rectal wall thickening. Question focal narrowing versus focal contraction slightly more proximally near the rectum. It is difficult to exclude stricture and/or mass in these regions. Please correlate clinically and if indicated this could be further evaluated with colonoscopy. Clinical correlation. -RUQ US: Fatty infiltration liver. Mild hepatomegaly. Cholelithiasis without sonographic evidence of cholecystitis. -no leukocytosis, hyperglycemia, age<55, glucose<200, AST<250, LDH unknown. Bruce's score on admission: 0~unlikely severe pancreatitis -lipase> 40,000 -NPO -IVF; NS @150 -pain medication prn: Toradol moderate, morphine severe -antiemetics: zofran prn -Initial lipase > 40,000 --> 5763 -LDH 364 -Amylase 1459 -GI consult, Dr. Ruby PPx GI: protonix ivp VTE: SCDs Discussed w/ Dr. Yosef Meeks, PGY-1 <Yosef Romero - Last Filed: 03/28/19 16:40> Objective - Vital Signs/Intake and Output Vital Signs (last 24 hours): Temp Pulse Resp BP Pulse Ox 98.7 F 71 20 97/60 L 99 03/28/19 07:00 03/28/19 07:00 03/28/19 07:00 03/28/19 07:00 03/28/19 07:00 Intake and Output: 03/28/19 03/28/19 06:59 18:59 Intake Total 1899 1999 Balance 1899 1999 - Medications Medications: Current Medications Sodium Chloride (Sodium Chloride 0.9%) 1,000 mls @ 100 mls/hr IV .Q10H ANNETTE Ketorolac Tromethamine (Toradol) 30 mg IV Q6 PRN PRN Reason: Pain, severe (8-10) Ketorolac Tromethamine (Toradol) 15 mg IVP Q6 PRN PRN Reason: Pain, moderate (4-7) Ondansetron HCl (Zofran Inj) 4 mg IVP Q6 PRN PRN Reason: Nausea/Vomiting Pantoprazole Sodium (Protonix Inj) 40 mg IVP DAILY COUNT INCLUDES THE [facility] Last Admin: 03/28/19 10:08 Dose: 40 mg - Labs Labs: 03/28/19 06:36 03/28/19 06:36 PT 11.8 SECONDS (9.7-12.2) 03/26/19 20:03 INR 1.1 03/26/19 20:03 APTT 31.7 SECONDS (21-34) 03/26/19 20:03 Attending/Attestation - Attestation I have personally seen and examined this patient.: Yes I have fully participated in the care of the patient.: Yes I have reviewed all pertinent clinical information, including history, physical exam and plan: Yes Notes (Text): 03/28/19 16:40 This is a late entry. Care of this patient was gone over in detail with resident Dr. Meeks. Yosef Romero D.O.
--- NOTE | 2019-03-27 14:17 | CP.PCM.CON ---
History of Present Illness - History of Present Illness History of Present Illness: GI Fellow PGY5 Consult Note This is a 34 year old female with no significant pmhx who presents to the ED with complaints of severe abdominal pain that started this afternoon followed by nonbloody, bilious emesis. Patient reports similar symptoms of epigastric pain that radiates bilaterally over the past few month, lasting approx 15 minutes and then self resolve. She denies pain being associated with food intake, reports pains are usually on an empty stomach early in the morning. Patient reports today's episode was greater in severity, denies any triggers or consumption of fatty meals. Patient denies history of gallstones or pancreatitis, denies excessive alcohol consumption. ROS: A 12pt ROs was negative except as above pmhx: thyroid nodule, significance unknown pshx: x2, thyroid bx sochx: social alcohol use(last on Saturday 2 beers and prior to that months ago, no binge drinking or heavy alcohol), denies tobacco/drug use, lives with family famhx: denies GI cancer Past Patient History - Infectious Disease Hx of Infectious Diseases: None - Past Medical History & Family History Past Medical History?: Yes - Past Social History Smoking Status: Never Smoked - PULMONARY Hx Respiratory Disorders: No - HEMATOLOGICAL/ONCOLOGICAL Hx Blood Disorders: No - MUSCULOSKELETAL/RHEUMATOLOGICAL Hx Musculoskeletal Disorders: No Hx Falls: No - GASTROINTESTINAL Hx Gastrointestinal Disorders: No - GENITOURINARY/GYNECOLOGICAL Hx Genitourinary Disorders: No - PSYCHIATRIC Hx Substance Use: No - SURGICAL HISTORY Hx Surgeries: Yes Hx Section: Yes (x1) - ANESTHESIA Hx Anesthesia: Yes Hx Anesthesia Reactions: No Meds Allergies/Adverse Reactions: Allergies Allergy/AdvReac Type Severity Reaction Status Date / Time No Known Allergies Allergy Verified 03/26/19 18:09 - Medications Medications: Current Medications Lactated Ringer's (Lactated Ringer's) 1,000 mls @ 200 mls/hr IV .Q5H ANNETTE Last Admin: 03/27/19 12:08 Dose: 200 mls/hr Ketorolac Tromethamine (Toradol) 30 mg IV Q6 PRN PRN Reason: Pain, moderate (4-7) Last Admin: 03/27/19 12:11 Dose: 30 mg Morphine Sulfate (Morphine) 2 mg IVP Q4H PRN PRN Reason: Pain, severe (8-10) Ondansetron HCl (Zofran Inj) 4 mg IVP Q6 PRN PRN Reason: Nausea/Vomiting Pantoprazole Sodium (Protonix Inj) 40 mg IVP DAILY ANNETTE Last Admin: 03/27/19 09:53 Dose: 40 mg Physical Exam - Constitutional Appears: Non-toxic, No Acute Distress - Head Exam Head Exam: ATRAUMATIC, NORMAL INSPECTION, NORMOCEPHALIC - Eye Exam Eye Exam: EOMI, Normal appearance, PERRL Pupil Exam: PERRL - ENT Exam ENT Exam: Mucous Membranes Moist, Normal Exam - Neck Exam Neck exam: Positive for: Full Rom, Normal Inspection - Respiratory Exam Respiratory Exam: Clear to Auscultation Bilateral, NORMAL BREATHING PATTERN - Cardiovascular Exam Cardiovascular Exam: REGULAR RHYTHM, RRR, +S1, +S2 - GI/Abdominal Exam GI & Abdominal Exam: Normal Bowel Sounds, Soft, Tenderness. absent: Distended, Firm, Guarding, Organomegaly - Rectal Exam Rectal Exam: Deferred - Extremities Exam Extremities exam: Positive for: full ROM, normal inspection - Back Exam Back exam: FULL ROM, NORMAL INSPECTION - Neurological Exam Neurological exam: Alert, Oriented x3 - Psychiatric Exam Psychiatric exam: Normal Affect, Normal Mood - Skin Skin Exam: Dry, Intact, Normal Color, Warm Results - Vital Signs Recent Vital Signs: Last Vital Signs Temp 97.0 F L 03/27/19 07:00 Pulse 66 03/27/19 07:00 Resp 20 03/27/19 07:00 BP 100/64 03/27/19 07:00 Pulse Ox 99 03/27/19 07:00 - Labs Result Diagrams: 03/27/19 07:32 03/27/19 07:32 Labs: Laboratory Results - last 24 hr 03/26/19 03/26/19 03/26/19 20:03 20:03 20:03 WBC 10.2 D RBC 4.99 Hgb 13.3 Hct 40.9 MCV 82.1 D MCH 26.8 L MCHC 32.6 L RDW 13.8 Plt Count 225 MPV 9.4 Neut % (Auto) 84.2 H Lymph % (Auto) 11.5 L [place] % (Auto) 3.6 Eos % (Auto) 0.3 Baso % (Auto) 0.4 Neut # (Auto) 8.6 H Lymph # (Auto) 1.2 [place] # (Auto) 0.4 Eos # (Auto) 0.0 Baso # (Auto) 0.0 PT 11.8 INR 1.1 APTT 31.7 Sodium Potassium Chloride Carbon Dioxide Anion Gap BUN Creatinine Est GFR ( Amer) Est GFR (Non-Af Amer) Random Glucose Calcium Total Bilirubin AST ALT Alkaline Phosphatase Lactate Dehydrogenase Total Protein Albumin Globulin Albumin/Globulin Ratio Amylase Lipase Urine Color Yellow Urine Clarity Hazy Urine pH 9.0 Ur Specific [place] 1.010 Urine Protein Negative Urine Glucose (UA) Normal Urine Ketones Trace Urine Blood Negative Urine Nitrate Negative Urine Bilirubin Negative Urine Urobilinogen 2.0 H Ur Leukocyte Esterase Neg Urine WBC (Auto) < 1 Urine RBC (Auto) < 1 Ur Squamous Epith Cells 9 H Urine HCG, Qual Negative 03/26/19 03/27/19 03/27/19 20:03 07:32 07:32 WBC 8.0 RBC 4.10 Hgb 11.4 Hct 34.2 MCV 83.5 MCH 27.8 MCHC 33.3 RDW 13.6 Plt Count 203 MPV 9.5 Neut % (Auto) 72.7 Lymph % (Auto) 20.4 [place] % (Auto) 5.9 Eos % (Auto) 0.8 Baso % (Auto) 0.2 Neut # (Auto) 5.8 Lymph # (Auto) 1.6 [place] # (Auto) 0.5 Eos # (Auto) 0.1 Baso # (Auto) 0.0 PT INR APTT Sodium 139 139 Potassium 3.6 3.6 Chloride 101 106 Carbon Dioxide 27 26 Anion Gap 15 11 BUN 9 9 Creatinine 0.6 L 0.6 L Est GFR ( Amer) > 60 > 60 Est GFR (Non-Af Amer) > 60 > 60 Random Glucose 121 H D 88 D Calcium 9.5 8.3 L Total Bilirubin 1.1 0.5 AST 239 H D 111 H D ALT 150 H D 115 H D Alkaline Phosphatase 99 78 Lactate Dehydrogenase 364 Total Protein 7.6 6.0 L Albumin 4.3 3.3 L D Globulin 3.4 2.7 Albumin/Globulin Ratio 1.3 1.2 Amylase 1459 H Lipase > 81192 H 5763 H Urine Color Urine Clarity Urine pH Ur Specific [place] Urine Protein Urine Glucose (UA) Urine Ketones Urine Blood Urine Nitrate Urine Bilirubin Urine Urobilinogen Ur Leukocyte Esterase Urine WBC (Auto) Urine RBC (Auto) Ur Squamous Epith Cells Urine HCG, Qual Assessment & Plan - Assessment and Plan (Free Text) Assessment: 1. Acute Pancreatitis -likely gallstone induced 2. Abd pain, Nausea, Vomiting Plan: -Continue aggressive IVF hydration with LR @200/hr -NPO -Monitor BUN and HCT daily -Once pain improved can consider advancing to clear liquid diet tomorrow -Imaging and Abd US reviewed, +gallstones with elevated LFTs likely from gallstone induced pancreatitis -Pt denies heavy alcohol abuse, recommend checking blood etoh level -Lipid profile from 01/2019 wnl -Trend LFTs -Will need surgical consult for possible cholecystectomy -Will continue to monitor pt
--- NOTE | 2019-03-27 17:00 | CP.PCM.CON ---
<Levi Bennett - Last Filed: 03/27/19 16:47> History of Present Illness - History of Present Illness History of Present Illness: Surgery Consult Note. Dr. Burton 34yo F with no significant PMHx here for evaluation of abdominal pain. Patient started having severe abdominal pain located in the epigastric region which started yesterday at 12p. Associated with Nausea and vomiting x8, non bloody. She denies any fevers or chills. No CP/SOB. No urinary complaints. CT and Abd US finding consistent with cholelithiasis without evidence of cholecystitis. Lipase elevated. She still reports some epigastric tenderness but it has improved. PMHx: Deneis PSHx: x2 Social Hx: Denies Tobacco use, Denies ETOH use, Denies illicit drugs Family Hx: Denies NKDA Review of Systems - Review of Systems All systems: reviewed and no additional remarkable complaints except - Constitutional Constitutional: absent: Chills, Fever - Cardiovascular Cardiovascular: absent: Chest Pain, Dyspnea - Respiratory Respiratory: absent: Cough, Dyspnea - Gastrointestinal Gastrointestinal: Abdominal Pain, Nausea, Vomiting - Genitourinary Genitourinary: absent: Change in Urinary Stream - Musculoskeletal Musculoskeletal: absent: Back Pain Past Patient History - Infectious Disease Hx of Infectious Diseases: None - Past Medical History & Family History Past Medical History?: Yes - Past Social History Smoking Status: Never Smoked Alcohol: None Drugs: Denies - PULMONARY Hx Respiratory Disorders: No - HEMATOLOGICAL/ONCOLOGICAL Hx Blood Disorders: No - MUSCULOSKELETAL/RHEUMATOLOGICAL Hx Musculoskeletal Disorders: No Hx Falls: No - GASTROINTESTINAL Hx Gastrointestinal Disorders: No - GENITOURINARY/GYNECOLOGICAL Hx Genitourinary Disorders: No - PSYCHIATRIC Hx Substance Use: No - SURGICAL HISTORY Hx Surgeries: Yes Hx Section: Yes (x1) - ANESTHESIA Hx Anesthesia: Yes Hx Anesthesia Reactions: No Meds Allergies/Adverse Reactions: Allergies Allergy/AdvReac Type Severity Reaction Status Date / Time No Known Allergies Allergy Verified 03/26/19 18:09 - Medications Medications: Current Medications Lactated Ringer's (Lactated Ringer's) 1,000 mls @ 200 mls/hr IV .Q5H [facility] Last Admin: 03/27/19 12:08 Dose: 200 mls/hr Ketorolac Tromethamine (Toradol) 30 mg IV Q6 PRN PRN Reason: Pain, moderate (4-7) Last Admin: 03/27/19 12:11 Dose: 30 mg Morphine Sulfate (Morphine) 2 mg IVP Q4H PRN PRN Reason: Pain, severe (8-10) Ondansetron HCl (Zofran Inj) 4 mg IVP Q6 PRN PRN Reason: Nausea/Vomiting Pantoprazole Sodium (Protonix Inj) 40 mg IVP DAILY [facility] Last Admin: 03/27/19 09:53 Dose: 40 mg Physical Exam - Constitutional Appears: Well, Non-toxic, No Acute Distress - Head Exam Head Exam: ATRAUMATIC, NORMAL INSPECTION, NORMOCEPHALIC - Eye Exam Eye Exam: EOMI, Normal appearance. absent: Scleral icterus - ENT Exam ENT Exam: Mucous Membranes Moist - Respiratory Exam Respiratory Exam: NORMAL BREATHING PATTERN. absent: Accessory Muscle Use, Respiratory Distress - Cardiovascular Exam Cardiovascular Exam: RRR. absent: JVD - GI/Abdominal Exam GI & Abdominal Exam: Soft. absent: Distended, Firm, Guarding, Rebound, Rigid Additional comments: epigastric tenderness to palpation - Extremities Exam Extremities exam: Positive for: normal inspection. Negative for: calf tenderness - Back Exam Back exam: NORMAL INSPECTION - Neurological Exam Neurological exam: Alert, Oriented x3 - Psychiatric Exam Psychiatric exam: Normal Affect, Normal Mood - Skin Skin Exam: Dry, Intact, Normal Color, Warm Results - Vital Signs Recent Vital Signs: Last Vital Signs Temp 97.0 F L 03/27/19 07:00 Pulse 66 03/27/19 07:00 Resp 20 03/27/19 07:00 BP 100/64 03/27/19 07:00 Pulse Ox 99 03/27/19 07:00 - Labs Result Diagrams: 03/27/19 07:32 03/27/19 07:32 Labs: Laboratory Results - last 24 hr 03/26/19 03/26/19 03/26/19 20:03 20:03 20:03 WBC 10.2 D RBC 4.99 Hgb 13.3 Hct 40.9 MCV 82.1 D MCH 26.8 L MCHC 32.6 L RDW 13.8 Plt Count 225 MPV 9.4 Neut % (Auto) 84.2 H Lymph % (Auto) 11.5 L Heard % (Auto) 3.6 Eos % (Auto) 0.3 Baso % (Auto) 0.4 Neut # (Auto) 8.6 H Lymph # (Auto) 1.2 Heard # (Auto) 0.4 Eos # (Auto) 0.0 Baso # (Auto) 0.0 PT 11.8 INR 1.1 APTT 31.7 Sodium Potassium Chloride Carbon Dioxide Anion Gap BUN Creatinine Est GFR ( Amer) Est GFR (Non-Af Amer) Random Glucose Calcium Total Bilirubin AST ALT Alkaline Phosphatase Lactate Dehydrogenase Total Protein Albumin Globulin Albumin/Globulin Ratio Amylase Lipase Urine Color Yellow Urine Clarity Hazy Urine pH 9.0 Ur Specific [place] 1.010 Urine Protein Negative Urine Glucose (UA) Normal Urine Ketones Trace Urine Blood Negative Urine Nitrate Negative Urine Bilirubin Negative Urine Urobilinogen 2.0 H Ur Leukocyte Esterase Neg Urine WBC (Auto) < 1 Urine RBC (Auto) < 1 Ur Squamous Epith Cells 9 H Urine HCG, Qual Negative 03/26/19 03/27/19 03/27/19 20:03 07:32 07:32 WBC 8.0 RBC 4.10 Hgb 11.4 Hct 34.2 MCV 83.5 MCH 27.8 MCHC 33.3 RDW 13.6 Plt Count 203 MPV 9.5 Neut % (Auto) 72.7 Lymph % (Auto) 20.4 Heard % (Auto) 5.9 Eos % (Auto) 0.8 Baso % (Auto) 0.2 Neut # (Auto) 5.8 Lymph # (Auto) 1.6 Heard # (Auto) 0.5 Eos # (Auto) 0.1 Baso # (Auto) 0.0 PT INR APTT Sodium 139 139 Potassium 3.6 3.6 Chloride 101 106 Carbon Dioxide 27 26 Anion Gap 15 11 BUN 9 9 Creatinine 0.6 L 0.6 L Est GFR ( Amer) > 60 > 60 Est GFR (Non-Af Amer) > 60 > 60 Random Glucose 121 H D 88 D Calcium 9.5 8.3 L Total Bilirubin 1.1 0.5 AST 239 H D 111 H D ALT 150 H D 115 H D Alkaline Phosphatase 99 78 Lactate Dehydrogenase 364 Total Protein 7.6 6.0 L Albumin 4.3 3.3 L D Globulin 3.4 2.7 Albumin/Globulin Ratio 1.3 1.2 Amylase 1459 H Lipase > 78118 H 5763 H Urine Color Urine Clarity Urine pH Ur Specific [place] Urine Protein Urine Glucose (UA) Urine Ketones Urine Blood Urine Nitrate Urine Bilirubin Urine Urobilinogen Ur Leukocyte Esterase Urine WBC (Auto) Urine RBC (Auto) Ur Squamous Epith Cells Urine HCG, Qual Assessment & Plan - Assessment and Plan (Free Text) Assessment: 34yo F with gallstone pancreatitis Plan: - LFTs trending down - Continue to monitor clinically; Patient will benefit from cholecystectomy during the same admission - Will plan for OR Saturday, 03/30 if patient is agreeable for surgery Further recs as per Dr. Morris PGY2 surgery <Abraham Sanchez - Last Filed: 03/29/19 12:26> Meds - Medications Medications: Current Medications Sodium Chloride (Sodium Chloride 0.9%) 1,000 mls @ 100 mls/hr IV .Q10H [facility] Last Admin: 03/29/19 09:28 Dose: 100 mls/hr Ketorolac Tromethamine (Toradol) 30 mg IV Q6 PRN PRN Reason: Pain, severe (8-10) Ketorolac Tromethamine (Toradol) 15 mg IVP Q6 PRN PRN Reason: Pain, moderate (4-7) Ondansetron HCl (Zofran Inj) 4 mg IVP Q6 PRN PRN Reason: Nausea/Vomiting Pantoprazole Sodium (Protonix Inj) 40 mg IVP DAILY [facility] Last Admin: 03/29/19 09:28 Dose: 40 mg Results - Vital Signs Recent Vital Signs: Last Vital Signs Temp 98.2 F 03/29/19 07:00 Pulse 74 03/29/19 07:00 Resp 20 03/29/19 07:00 BP 106/72 03/29/19 07:00 Pulse Ox 97 03/29/19 07:00 - Labs Result Diagrams: 03/29/19 07:49 03/29/19 07:49 Labs: Laboratory Results - last 24 hr 03/29/19 03/29/19 03/29/19 06:28 07:49 07:49 WBC 7.7 RBC 3.94 Hgb 10.8 L Hct 32.8 L MCV 83.1 MCH 27.5 MCHC 33.0 RDW 13.7 Plt Count 178 MPV 10.3 Neut % (Auto) 71.5 Lymph % (Auto) 20.2 Heard % (Auto) 7.2 Eos % (Auto) 1.0 Baso % (Auto) 0.1 Neut # (Auto) 5.5 Lymph # (Auto) 1.5 Heard # (Auto) 0.6 Eos # (Auto) 0.1 Baso # (Auto) 0.0 PT INR APTT Sodium 137 Potassium 3.5 L Chloride 105 Carbon Dioxide 25 Anion Gap 10 BUN 4 L Creatinine 0.5 L Est GFR ( Amer) > 60 Est GFR (Non-Af Amer) > 60 Random Glucose 84 Calcium 8.5 L Total Bilirubin 0.6 AST 29 ALT 61 H D Alkaline Phosphatase 69 Total Protein 6.1 L Albumin 3.2 L Globulin 2.9 Albumin/Globulin Ratio 1.1 Urine HCG, Qual Negative Blood Type Antibody Screen 03/29/19 03/29/19 07:49 07:49 WBC RBC Hgb Hct MCV MCH MCHC RDW Plt Count MPV Neut % (Auto) Lymph % (Auto) Heard % (Auto) Eos % (Auto) Baso % (Auto) Neut # (Auto) Lymph # (Auto) Heard # (Auto) Eos # (Auto) Baso # (Auto) PT 13.3 H INR 1.2 APTT 31.2 Sodium Potassium Chloride Carbon Dioxide Anion Gap BUN Creatinine Est GFR ( Amer) Est GFR (Non-Af Amer) Random Glucose Calcium Total Bilirubin AST ALT Alkaline Phosphatase Total Protein Albumin Globulin Albumin/Globulin Ratio Urine HCG, Qual Blood Type O POSITIVE Antibody Screen Negative Assessment & Plan - Assessment and Plan (Free Text) Plan: All medical record entries made by the resident were at my direction. I have reviewed the chart and agree that the record accurately reflects my personal performance of the history, physical exam, and medical decision making.
[2019-03-28] MEDS: Lactated Ringer's 1,000 ML IV SCH ×3 (03:31→14:54)
[2019-03-28 06:54] LABS: BASO % 0.2 % (0.0-2.0); EOS # 0.1 K/uL (0.0-0.7); EOS % 1.3 % (0.0-4.0); HEMOGLOBIN 10.7 g/dL (11.0-16.0); LYMPH # 1.7 K/uL (1.0-4.3); LYMPH % 20.4 % (20.0-40.0); MEAN CELL VOLUME 83.4 fL (81.0-99.0); MEAN CORPUSCULAR HEMOGLOBIN 27.6 pg (27.0-31.0); MEAN CORPUSCULAR HGB CONC 33.1 g/dL (33.0-37.0); MEAN PLATELET VOLUME 9.9 fL (7.2-11.7); MONO # 0.5 K/uL (0.0-0.8); MONO % 6.2 % (0.0-10.0); NEUT # 5.9 K/uL (1.8-7.0); NEUT % 71.9 % (50.0-75.0); RBC 3.86 Mil/uL (3.80-5.20); RED CELL DISTRIBUTION WIDTH 13.9 % (11.5-14.5); WHITE BLOOD COUNT 8.2 K/uL (4.8-10.8)
[2019-03-28 06:58] LABS: ALB/GLOB RATIO 1.1 (1.0-2.1); ALT/SGPT 81 U/L (9-52); AST/SGOT 43 U/L (14-36); BLOOD UREA NITROGEN 5 mg/dL (7-17); CALCIUM 8.5 mg/dl (8.6-10.4); GFR NON-AFRICAN AMERICAN > 60; HDL CHOLESTEROL 38 mg/dL (30-70)
[2019-03-28 07:08] LABS: LDL CHOLESTEROL 93 mg/dL (0-129)
--- NOTE | 2019-03-28 08:04 | CP.PCM.PN ---
Subjective - Date & Time of Evaluation Date of Evaluation: 03/28/19 Time of Evaluation: 08:00 - Subjective Subjective: Hospitalist Progress Note Patient was seen and examined at 8:00 AM Bed 651 B on 03/28/19 Portuguese Interpretation provided by EDMOND Rodriguez ID #[id number] HPI: 34 year old female who is currently being treated for Acute Pancretitis likely secondary to Gallstone Pancreatitis Review of Systems: Clear liquid diet started on evening 03/27/19. She has not had an nausea/vomiting since starting this diet. She explains that upon awakening this morning her epigastric abdominal pain was 7/[address] after having her breakfast. She is concerned about having laporascopic cholecystectomy as recommended by Surgery Team as she has had dizziness in the past after receiving sedation for a [employer] procedure: explained that dizziness can be normal and expected after sedation/anesthesia but we would certainly monitor to her and provide medication for it as needed after the procedure She is teary and sad as she is away from her two children (3 months old and 3 years old): explained to her that we would do our best to get her home as quickly as possible after the cholecystectomy as long as she was stable to do so. She complained about a sensation that her left palm/hand felt like it was swollen, and this sensation has occurred in the past and has currently resolved. She has not had a bowel movement since Saturday and stated that she has had history of constipation when she has not gone for upto 1 week and these episodes resolve with taking fiber There are NO other complaints upon FULL ROS Exam: HEENT: NCA, EOMI, PERRLA, NO cervical/supraclavicular/submandibular lymphadenopathy, NO thyromegaly Cardio: NS1 and NS2, NO M/R/G Resp: CTA B/L, NO R/R/W GI: BSx4, Soft, ND, NO HSM, Tenderness to Deep Palpation in the Epigastric area however this is significantly less than exam on 03/27/19 and there is NO guarding and NO rebound tenderness Ext: NO edema noted in the bilateral UE and LE, Pulses are strong and equal, Capillary Refill is 2 seconds, Normal coloration and temperature Neuro: CN II through XII are grossly intact Assessment and Plan: 1). Acute Pancreatitis Status: Acute Radiology Studies: * CT Abdomen/Pelvis 03/27/19: finding suggestive acute pancreatitis with reactive thickening at the 2nd portion of the duodenum. Findings concerning for acute cholecystitis. Rectal wall thickening, question focal narrowing versus focal contraction slightly more proximally near the rectum. It is difficult to exclude stricture or mass in these regions. * GallBladder U/S 03/27/19: fatty liver, mild hepatomegaly, cholelithiasis without sonographic evidence of cholecystitis Medications: * Toradol 15 mg IV Q6H PRN Moderate Pain * Toradol 30 mg IV Q6H PRN Severe Pain * Zofran 4 mg IV Q6H PRN Nausea/Vomiting * NS at 100 ml/hr Started clear liquid diet on 03/27/19 afternoon as pain had improved and patient was hungry Spoke with [employer] Volodymyr: plan is for Laparoscopic Cholecystectomy on Saturday03/29/[address] Sanchez NPO after midnight on 03/28/19. Patient is agreeable for Laparoscopic Cholecystectomy after going over the procedure with her 2). Prophylaxis Status: Acute Clear liquid diet Protonix 40 mg IV Q24H Discussed plan with Nurse Ray Disposition: For Larparscopic Cholecystectomy on Saturday03/29/19 Yosef Romero D.O. [phone] Objective - Vital Signs/Intake and Output Vital Signs (last 24 hours): Temp Pulse Resp BP Pulse Ox 98.6 F 72 20 104/67 98 03/27/19 23:00 03/27/19 23:00 03/27/19 23:00 03/27/19 23:00 03/27/19 23:00 Intake and Output: 03/28/19 03/28/19 06:59 18:59 Intake Total 1900 Balance 1900 - Medications Medications: Current Medications Lactated Ringer's (Lactated Ringer's) 1,000 mls @ 200 mls/hr IV .Q5H [facility] Last Admin: 03/28/19 03:31 Dose: 200 mls/hr Ketorolac Tromethamine (Toradol) 30 mg IV Q6 PRN PRN Reason: Pain, moderate (4-7) Last Admin: 03/27/19 22:04 Dose: 30 mg Morphine Sulfate (Morphine) 2 mg IVP Q4H PRN PRN Reason: Pain, severe (8-10) Ondansetron HCl (Zofran Inj) 4 mg IVP Q6 PRN PRN Reason: Nausea/Vomiting Pantoprazole Sodium (Protonix Inj) 40 mg IVP DAILY [facility] Last Admin: 03/27/19 09:53 Dose: 40 mg - Labs Labs: 03/28/19 06:36 03/28/19 06:36 PT 11.8 SECONDS (9.7-12.2) 03/26/19 20:03 INR 1.1 03/26/19 20:03 APTT 31.7 SECONDS (21-34) 03/26/19 20:03
--- NOTE | 2019-03-28 08:46 | CP.PCM.PN ---
<Volodymyr Cooper - Last Filed: 03/28/19 08:44> Subjective - Date & Time of Evaluation Date of Evaluation: 03/28/19 Time of Evaluation: 08:44 - Subjective Subjective: Surgery Progress Note for Dr. Burton 34F seen and evaluated at bedside this morning. No acute events overnight. Complaints of abdominal pain that is improving. No nausea or vomiting. Denies f/c, diarrhea, SOB, CP, or urinary symptoms. Objective - Vital Signs/Intake and Output Vital Signs (last 24 hours): Temp Pulse Resp BP Pulse Ox 98.7 F 71 20 97/60 L 99 03/28/19 07:00 03/28/19 07:00 03/28/19 07:00 03/28/19 07:00 03/28/19 07:00 Intake and Output: 03/28/19 03/28/19 06:59 18:59 Intake Total 1900 Balance 1900 - Medications Medications: Current Medications Lactated Ringer's (Lactated Ringer's) 1,000 mls @ 200 mls/hr IV .Q5H [facility] Last Admin: 03/28/19 03:31 Dose: 200 mls/hr Potassium Chloride (Potassium Chloride 20 Meq/100 Ml) 20 meq in 100 mls @ 50 mls/hr IVPB ONCE ONE Stop: 03/28/19 10:59 Ketorolac Tromethamine (Toradol) 30 mg IV Q6 PRN PRN Reason: Pain, moderate (4-7) Last Admin: 03/27/19 22:04 Dose: 30 mg Morphine Sulfate (Morphine) 2 mg IVP Q4H PRN PRN Reason: Pain, severe (8-10) Ondansetron HCl (Zofran Inj) 4 mg IVP Q6 PRN PRN Reason: Nausea/Vomiting Pantoprazole Sodium (Protonix Inj) 40 mg IVP DAILY [facility] Last Admin: 03/27/19 09:53 Dose: 40 mg - Labs Labs: 03/28/19 06:36 03/28/19 06:36 PT 11.8 SECONDS (9.7-12.2) 03/26/19 20:03 INR 1.1 03/26/19 20:03 APTT 31.7 SECONDS (21-34) 03/26/19 20:03 - Constitutional Appears: Well, Non-toxic, No Acute Distress - Head Exam Head Exam: ATRAUMATIC, NORMAL INSPECTION, NORMOCEPHALIC - Eye Exam Eye Exam: EOMI Pupil Exam: PERRL - ENT Exam ENT Exam: Mucous Membranes Moist - Respiratory Exam Respiratory Exam: NORMAL BREATHING PATTERN. absent: Wheezes, Respiratory Distress - Cardiovascular Exam Cardiovascular Exam: REGULAR RHYTHM, +S1, +S2. absent: Murmur - GI/Abdominal Exam GI & Abdominal Exam: Soft, Tenderness, Normal Bowel Sounds. absent: Distended, Guarding, Rebound - Neurological Exam Neurological Exam: Alert, Awake, Oriented x3 - Psychiatric Exam Psychiatric exam: Normal Affect, Normal Mood - Skin Skin Exam: Dry, Intact, Normal Color, Warm Assessment and Plan - Assessment and Plan (Free Text) Assessment: 34F w/ gallstone pancreatitis Plan: Will prepare for OR tomorrow Continue to monitor for clinical improvement NPO past midnight IVF Antiemetics and analgesics PRN Coags, CXR D/w Dr. Coffey PGY1 <Abraham Sanchez - Last Filed: 03/29/19 12:23> Objective - Vital Signs/Intake and Output Vital Signs (last 24 hours): Temp Pulse Resp BP Pulse Ox 98.2 F 74 20 106/72 97 03/29/19 07:00 03/29/19 07:00 03/29/19 07:00 03/29/19 07:00 03/29/19 07:00 Intake and Output: 03/29/19 03/29/19 06:59 18:59 Intake Total 1150 Balance 1150 - Medications Medications: Current Medications Sodium Chloride (Sodium Chloride 0.9%) 1,000 mls @ 100 mls/hr IV .Q10H [facility] Last Admin: 03/29/19 09:28 Dose: 100 mls/hr Ketorolac Tromethamine (Toradol) 30 mg IV Q6 PRN PRN Reason: Pain, severe (8-10) Ketorolac Tromethamine (Toradol) 15 mg IVP Q6 PRN PRN Reason: Pain, moderate (4-7) Ondansetron HCl (Zofran Inj) 4 mg IVP Q6 PRN PRN Reason: Nausea/Vomiting Pantoprazole Sodium (Protonix Inj) 40 mg IVP DAILY [facility] Last Admin: 03/29/19 09:28 Dose: 40 mg - Labs Labs: 03/29/19 07:49 03/29/19 07:49 PT 13.3 SECONDS (9.7-12.2) H 03/29/19 07:49 INR 1.2 03/29/19 07:49 APTT 31.2 SECONDS (21-34) 03/29/19 07:49 Assessment and Plan - Assessment and Plan (Free Text) Plan: All medical record entries made by the resident were at my direction. I have reviewed the chart and agree that the record accurately reflects my personal performance of the history, physical exam, and medical decision making.
--- NOTE | 2019-03-28 09:49 | RAD ---
HISTORY: preop COMPARISON: None available TECHNIQUE: Chest, one view. FINDINGS: LUNGS: No focal consolidation. Please note that chest x-ray has limited sensitivity for the detection of pulmonary masses. PLEURA: No significant pleural effusion identified. No definite pneumothorax . CARDIOVASCULAR: The cardiomediastinal silhouette appears within normal limits of size. No significant atherosclerotic calcification present. OSSEOUS STRUCTURES: No acute osseous abnormality identified. VISUALIZED UPPER ABDOMEN: Unremarkable. OTHER FINDINGS: None. IMPRESSION: No acute findings identified.
--- NOTE | 2019-03-28 14:15 | CARD ---
APPROVED REPORT Date of service: 03/26/2019 EKG Measurement Heart [id number] <Conclusion> Normal sinus rhythm Normal ECG
[2019-03-28] MEDS: Sodium Chloride 0.9% 1,000 ML IV SCH (15:45)
[2019-03-29] MEDS: Sodium Chloride 0.9% 1,000 ML IV SCH ×4 (01:19→21:30)
--- NOTE | 2019-03-29 07:16 | CP.PCM.PN ---
<Theresa Matthew - Last Filed: 03/29/19 07:35> Subjective - Date & Time of Evaluation Date of Evaluation: 03/29/19 Time of Evaluation: 07:13 - Subjective Subjective: Medicine Note for Hospitalist Service Patient was seen and examined at bedside. Patient reports she feels well. Her pain is intermittent but less severe. Objective - Vital Signs/Intake and Output Vital Signs (last 24 hours): Temp Pulse Resp BP Pulse Ox 99.3 F 66 20 99/63 L 98 03/28/19 23:15 03/28/19 23:15 03/28/19 23:15 03/28/19 23:15 03/28/19 23:15 Intake and Output: 03/29/19 03/29/19 06:59 18:59 Intake Total 1150 Balance 1150 - Medications Medications: Current Medications Sodium Chloride (Sodium Chloride 0.9%) 1,000 mls @ 100 mls/hr IV .Q10H [facility] Last Admin: 03/29/19 01:19 Dose: 100 mls/hr Ketorolac Tromethamine (Toradol) 30 mg IV Q6 PRN PRN Reason: Pain, severe (8-10) Ketorolac Tromethamine (Toradol) 15 mg IVP Q6 PRN PRN Reason: Pain, moderate (4-7) Ondansetron HCl (Zofran Inj) 4 mg IVP Q6 PRN PRN Reason: Nausea/Vomiting Pantoprazole Sodium (Protonix Inj) 40 mg IVP DAILY [facility] Last Admin: 03/28/19 10:08 Dose: 40 mg - Labs Labs: 03/28/19 06:36 03/28/19 06:36 PT 11.8 SECONDS (9.7-12.2) 03/26/19 20:03 INR 1.1 03/26/19 20:03 APTT 31.7 SECONDS (21-34) 03/26/19 20:03 - Constitutional Appears: No Acute Distress - Head Exam Head Exam: NORMAL INSPECTION, NORMOCEPHALIC - Eye Exam Eye Exam: EOMI, Normal appearance, PERRL Pupil Exam: NORMAL ACCOMODATION - ENT Exam ENT Exam: Mucous Membranes Moist - Respiratory Exam Respiratory Exam: Clear to Ausculation Bilateral, NORMAL BREATHING PATTERN. absent: Decreased Breath Sounds, Rhonchi, Wheezes - Cardiovascular Exam Cardiovascular Exam: REGULAR RHYTHM - GI/Abdominal Exam GI & Abdominal Exam: Soft, Tenderness, Normal Bowel Sounds. absent: Distended Additional comments: TTP epigastric and RUQ area, less than when examined the day prior - Extremities Exam Extremities Exam: Normal Inspection. absent: Pedal Edema, Tenderness - Neurological Exam Neurological Exam: Alert, Awake, Oriented x3 - Psychiatric Exam Psychiatric exam: Normal Affect, Normal Mood - Skin Skin Exam: Dry, Intact, Normal Color, Warm Assessment and Plan - Assessment and Plan (Free Text) Plan: Acute Pancreatitis Status: Acute Radiology Studies: * CT Abdomen/Pelvis 03/27/19: finding suggestive acute pancreatitis with reactive thickening at the 2nd portion of the duodenum. Findings concerning for acute cholecystitis. Rectal wall thickening, question focal narrowing versus focal contraction slightly more proximally near the rectum. It is difficult to exclude stricture or mass in these regions. * GallBladder U/S 03/27/19: fatty liver, mild hepatomegaly, cholelithiasis with out sonographic evidence of cholecystitis Medications: * Toradol 15 mg IV Q6H PRN Moderate Pain * Toradol 30 mg IV Q6H PRN Severe Pain * Zofran 4 mg IV Q6H PRN Nausea/Vomiting * NS at 100 ml/hr Management: * NPO after midnight on 03/28/19. * Plan is for Laparoscopic Cholecystectomy on Saturday03/29/[address] Sanchez Prophylaxis * Protonix 40 mg IV Q24H Disposition: Plan is for Laparoscopic Cholecystectomy on Saturday03/29/[address] Sanchez[address] Dr. Yosef Romero DO, Theresa Matthew DO, PGY2 <Yosef Romero J - Last Filed: 03/29/19 09:46> Objective - Vital Signs/Intake and Output Vital Signs (last 24 hours): Temp Pulse Resp BP Pulse Ox 98.2 F 74 20 106/72 97 03/29/19 07:00 03/29/19 07:00 03/29/19 07:00 03/29/19 07:00 03/29/19 07:00 Intake and Output: 03/29/19 03/29/19 06:59 18:59 Intake Total 1150 Balance 1150 - Medications Medications: Current Medications Sodium Chloride (Sodium Chloride 0.9%) 1,000 mls @ 100 mls/hr IV .Q10H [facility] Last Admin: 03/29/19 09:28 Dose: 100 mls/hr Ketorolac Tromethamine (Toradol) 30 mg IV Q6 PRN PRN Reason: Pain, severe (8-10) Ketorolac Tromethamine (Toradol) 15 mg IVP Q6 PRN PRN Reason: Pain, moderate (4-7) Ondansetron HCl (Zofran Inj) 4 mg IVP Q6 PRN PRN Reason: Nausea/Vomiting Pantoprazole Sodium (Protonix Inj) 40 mg IVP DAILY [facility] Last Admin: 03/29/19 09:28 Dose: 40 mg - Labs Labs: 03/29/19 07:49 03/29/19 07:49 PT 13.3 SECONDS (9.7-12.2) H 03/29/19 07:49 INR 1.2 03/29/19 07:49 APTT 31.2 SECONDS (21-34) 03/29/19 07:49 Attending/Attestation - Attestation I have personally seen and examined this patient.: Yes I have fully participated in the care of the patient.: Yes I have reviewed all pertinent clinical information, including history, physical exam and plan: Yes Notes (Text): 03/29/19 09:37 Hospitalist Progress Note Patient was seen and examined at 9:30 AM Bed 651 B on 03/29/19 HPI: 34 year old female who is currently being treated for Acute Pancretitis likely secondary to Gallstone Pancreatitis Review of Systems: NO abdominal pain: states now that she gets discomfort in the epigastric area only if deep respirations NO n/v: has not moved her bowels since admission (please note that she was NPO and then clear liquids only) NO other complaints upon FULL ROS Exam: HEENT: NCA, EOMI, PERRLA, NO cervical/supraclavicular/submandibular lymphadenopathy, NO thyromegaly Cardio: NS1 and NS2, NO M/R/G Resp: CTA B/L, NO R/R/W GI: BSx4, Soft, ND, NO HSM, Tenderness to Deep Palpation in the Epigastric area however this is significantly less than exam on 03/28/19 and there is NO guarding and NO rebound tenderness Ext: NO edema noted in the bilateral UE and LE, Pulses are strong and equal, Capillary Refill is 2 seconds, Normal coloration and temperature Neuro: CN II through XII are grossly intact Assessment and Plan: 1). Acute Pancreatitis Status: Acute Radiology Studies: * CT Abdomen/Pelvis 03/27/19: finding suggestive acute pancreatitis with reactive thickening at the 2nd portion of the duodenum. Findings concerning for acute cholecystitis. Rectal wall thickening, question focal narrowing versus focal contraction slightly more proximally near the rectum. It is difficult to exclude stricture or mass in these regions. * GallBladder U/S 03/27/19: fatty liver, mild hepatomegaly, cholelithiasis without sonographic evidence of cholecystitis Medications: * Toradol 15 mg IV Q6H PRN Moderate Pain * Toradol 30 mg IV Q6H PRN Severe Pain * Zofran 4 mg IV Q6H PRN Nausea/Vomiting * NS at 100 ml/hr Started clear liquid diet on 03/27/19 afternoon as pain had improved and patient was hungry Laparoscopic Cholecystectomy on Saturday03/29/19 12:[address] Sanchez NPO after midnight on 03/28/19. Patient was agreeable for Laparoscopic Cholecystectomy after going over the procedure with her 2). Prophylaxis Status: Acute Clear liquid diet but currently NPO Protonix 40 mg IV Q24H Discussed plan with Nurse Ray Disposition: For Larparscopic Cholecystectomy on Saturday03/29/19 12:00 PM If NO issues and cleared by surgery, plan for discharge on 03/30/19 Yosef Romero D.O. [phone]
[2019-03-29 07:59] LABS: BASO % 0.1 % (0.0-2.0); EOS # 0.1 K/uL (0.0-0.7); HEMOGLOBIN 10.8 g/dL (11.0-16.0); LYMPH # 1.5 K/uL (1.0-4.3); LYMPH % 20.2 % (20.0-40.0); MEAN CELL VOLUME 83.1 fL (81.0-99.0); MEAN CORPUSCULAR HEMOGLOBIN 27.5 pg (27.0-31.0); MEAN PLATELET VOLUME 10.3 fL (7.2-11.7); MONO # 0.6 K/uL (0.0-0.8); MONO % 7.2 % (0.0-10.0); NEUT # 5.5 K/uL (1.8-7.0); NEUT % 71.5 % (50.0-75.0); NRBC % 0.1 % (0.0-2.0); RBC 3.94 Mil/uL (3.80-5.20); RED CELL DISTRIBUTION WIDTH 13.7 % (11.5-14.5); WHITE BLOOD COUNT 7.7 K/uL (4.8-10.8)
[2019-03-29 08:12] LABS: ALB/GLOB RATIO 1.1 (1.0-2.1); ALBUMIN 3.2 g/dL (3.5-5.0); ALT/SGPT 61 U/L (9-52); AST/SGOT 29 U/L (14-36); BLOOD UREA NITROGEN 4 mg/dL (7-17); CALCIUM 8.5 mg/dl (8.6-10.4); GFR NON-AFRICAN AMERICAN > 60
[2019-03-29 08:19] LABS: INR 1.2; PARTIAL THROMBOPLASTIN TIME 31.2 SECONDS (21-34); PROTHROMBIN TIME 13.3 SECONDS (9.7-12.2)
[2019-03-29] MEDS ORDERED: Potassium Chloride 20 mEq/15 ml LIQ UD PO ONE ×2 (11:00→13:00)
[2019-03-29] MEDS ORDERED: ceFAZolin 1 gm in NS 2 GM/200 ML BAG IVPB ONE (12:59)
[2019-03-29] MEDS ORDERED: Bupivacaine 0.25% 20 ML INJ IJ ONE (12:59)
[2019-03-29] MEDS ORDERED: Midazolam 2 MG/2 ML VIAL ONE (13:29)
[2019-03-29] MEDS ORDERED: Propofol 10 mg/ml Inj (20 ML) ONE (13:29)
[2019-03-29] MEDS ORDERED: HYDROmorphone 0.5 mg/0.5 ml ISec IVP PRN (14:12)
--- NOTE | 2019-03-29 14:44 | PCM.SURG1 ---
Surgeon's Initial Post Op Note - Surgeon's Notes Surgeon: Dr. Burton Acid Patroller: Sabrina PGY2 Type of Anesthesia: General Endo, Local (20cc 0.25% Marcaine ) Anesthesia Administered By: Dr. Delacruz Pre-Operative Diagnosis: Gallstone Pancreatitis Operative Findings: Cholelithiasis Post-Operative Diagnosis: Same Operation Performed: Laparascopic Cholecystectomy Specimen/Specimens Removed: Gallbladder Estimated Blood Loss: EBL {In ML}: 10 Blood Products Given: N/A Drains Used: No Drains Post-Op Condition: Good Date of Surgery/Procedure: 03/29/19 Time of Surgery/Procedure: 14:44
--- NOTE | 2019-03-29 20:23 | CP.PCM.PCO ---
Physician Communication Note - Physician Communication Note Physician Communication Note: Please see above
--- NOTE | 2019-03-30 02:48 | OP ---
PROCEDURE DATE: 03/29/2019 TIME OF SURGERY: 14:44. SURGEON: Abraham Burton MD ORTHOPEDIC TECHNICIAN: Levi Bennett DO, PGY-2 TYPE OF ANESTHESIA: General endotracheal, local with 20 mL of 0.25% Marcaine. ANESTHESIA ADMINISTERED BY: Alcon Delacruz MD PREOPERATIVE DIAGNOSIS: Gallstone pancreatitis. POSTOPERATIVE DIAGNOSIS: Gallstone pancreatitis. OPERATION PERFORMED: Laparoscopic cholecystectomy. SPECIMEN REMOVED: Gallbladder. ESTIMATED BLOOD LOSS: 10 mL. BLOOD PRODUCTS: No intraoperative blood products were given. DRAINS: No drains were used. POSTOPERATIVE CONDITION: Good. INDICATIONS: Mrs. Sales is a 34-year-old female with no significant past medical history who comes in with gallstone pancreatitis. Ultrasound was done which showed cholelithiasis in CT scan, and the patient's lipase was consistent with pancreatitis. The patient's pancreatitis improved clinically over the next couple of days, and the patient's gallbladder removal was indicated. This was discussed with the patient and family. Consent was obtained both written and verbal by discussing the risks and benefits of the procedure, and the patient was consented for laparoscopic cholecystectomy, possible open cholecystectomy. DESCRIPTION OF PROCEDURE: The patient was brought to the operating room table where the surgical safety checklist was performed. Preoperatively, 2 g of IV Ancef were administered by the anesthesia team. General anesthesia was induced using endotracheal tube intubation. A Sen catheter was not inserted as the patient was able to void immediately prior to the operation. The left arm was tucked. The patient was placed in the supine position. The abdomen was prepped and draped in the usual sterile fashion using chlorhexidine prep. An infraumbilical midline incision was performed using a #15 blade. This was carried down to the fascia which was divided exposing the peritoneal cavity using a Mitali clamp. A Veress needle was then used to establish our pneumoperitoneum through the infraumbilical incision. The laparoscope was then inserted into the abdomen under direct vision using a Visiport 5-mm scope, 30-degree angle. Once the 5-mm trocar was inserted successfully into the abdomen, the 5-mm 30-degree angle scope was then re-inserted and the entire abdominal cavity was inspected and was free of any iatrogenic injuries. Subsequently, the following ports were inserted under direct vision along with local anesthetic in a typical fashion. A 10-mm subxiphoid port and two 5-mm ports along the right costal margin. The peritoneal cavity was again inspected with no abnormalities found. The patient was then placed in reverse Trendelenburg position with the right side up. There were no overt omental attachments to the gallbladder. The gallbladder was grasped using atraumatic grasper which could be used to retract the fundus of the gallbladder superiorly over the dome of the liver firmly. Adhesions between the gallbladder and the omentum were also bluntly dissected and pulled away. The infundibulum was then identified and subsequently retracted laterally towards the right lower quadrant using another atraumatic grasper. This maneuver exposed the Calot's triangle. The peritoneum overlying the gallbladder infundibulum was bluntly dissected and then posterior peritoneum was also dissected. The triangle was dissected to expose the cystic artery, the cystic plate, and cystic duct. Once the cystic duct was clearly identified, 5-mm clips were placed using the clip business objects report developer. This was doubly clipped and divided using the Endo Nicole. The gallbladder infundibulum was then retracted superiorly. This exposed the cystic artery. This was again bluntly dissected and once it was noted that the single structure was entering into the gallbladder fossa and the gallbladder wall, it was again doubly clipped and ligated using Endo Nicole. The electrocautery was then used to separate the peritoneal attachments between the gallbladder and its bed and liver. The gallbladder fossa and the cystic artery were inspected to ensure that there was no bleeding. Hemostasis was achieved using electrocautery. There were no intraoperative leakage noted and there was no leakage of bile from the cystic duct stump. The gallbladder once freed was placed in the endoscopic retrieval bag and easily removed from the subxiphoid port. The specimen was sent to pathology. The 10-mm port at the subxiphoid region. The skin was then closed using 3-0 Vicryl in the deep dermal layer and followed by all the incisions closed in a 4-0 Vicryl continuous subcuticular fashion. The operative field was cleaned and dried and Dermabond dressing was applied. There were no intraoperative complications and the estimated blood loss was 10 mL. All instruments and sponge counts were declared correct by the surgical team. The surgical debriefing was then performed. The patient was extubated and transferred to the PACU in a stable condition. Levi Bennett DO Abraham Burton M.D. [facility] # [id number]
--- NOTE | 2019-03-30 07:27 | CP.PCM.PN ---
Subjective - Date & Time of Evaluation Date of Evaluation: 03/30/19 Time of Evaluation: 07:27 - Subjective Subjective: General Surgery Note for Dr. Burton Patient seen and examined at bedside. No acute event overnight. She is s/p laparoscopic cholecystectomy POD#1. Patient feels fine. Denies fever/chills or ausea/vomiting. Patient is tolerating diet. She is passing flatus. Patient pending labs. Objective - Vital Signs/Intake and Output Vital Signs (last 24 hours): Temp Pulse Resp BP Pulse Ox 99.3 F 71 20 100/65 95 03/30/19 05:05 03/30/19 05:05 03/30/19 05:05 03/30/19 05:05 03/30/19 05:05 Intake and Output: 03/30/19 03/30/19 06:59 18:59 Intake Total 950 Balance 950 - Medications Medications: Current Medications Acetaminophen (Tylenol 325mg Tab) 650 mg PO Q6 PRN PRN Reason: Pain, Mild (1-3) Last Admin: 03/29/19 21:29 Dose: 650 mg Hydromorphone HCl (Dilaudid) 0.5 mg IVP Q15M PRN PRN Reason: Pain, severe (8-10) Last Admin: 03/29/19 14:57 Dose: 0.5 mg Ketorolac Tromethamine (Toradol) 30 mg IV Q6 PRN PRN Reason: Pain, severe (8-10) Last Admin: 03/30/19 05:09 Dose: 30 mg Ketorolac Tromethamine (Toradol) 15 mg IVP Q6 PRN PRN Reason: Pain, moderate (4-7) Ondansetron HCl (Zofran Inj) 4 mg IVP Q6 PRN PRN Reason: Nausea/Vomiting Last Admin: 03/29/19 21:29 Dose: 4 mg Pantoprazole Sodium (Protonix Inj) 40 mg IVP DAILY [facility] Last Admin: 03/29/19 09:28 Dose: 40 mg Tramadol HCl (Ultram) 50 mg PO TID PRN PRN Reason: Pain, severe (8-10) Last Admin: 03/29/19 18:02 Dose: 50 mg - Labs Labs: 03/29/19 07:49 03/29/19 07:49 PT 13.3 SECONDS (9.7-12.2) H 03/29/19 07:49 INR 1.2 03/29/19 07:49 APTT 31.2 SECONDS (21-34) 03/29/19 07:49 - Constitutional Appears: No Acute Distress - Head Exam Head Exam: ATRAUMATIC, NORMOCEPHALIC - Eye Exam Eye Exam: EOMI, Normal appearance Pupil Exam: PERRL - ENT Exam ENT Exam: Mucous Membranes Moist - Neck Exam Neck Exam: Full ROM - Respiratory Exam Respiratory Exam: NORMAL BREATHING PATTERN - Cardiovascular Exam Cardiovascular Exam: REGULAR RHYTHM - GI/Abdominal Exam GI & Abdominal Exam: Soft, Tenderness (surgical sites), Normal Bowel Sounds. absent: Distended, Firm, Guarding, Rigid - Extremities Exam Extremities Exam: Normal Capillary Refill - Back Exam Back Exam: absent: CVA tenderness (L), CVA tenderness (R) - Neurological Exam Neurological Exam: Alert, Awake, Oriented x3 - Psychiatric Exam Psychiatric exam: Normal Affect, Normal Mood - Skin Skin Exam: Dry, Intact, Normal Color, Warm Assessment and Plan - Assessment and Plan (Free Text) Assessment: 34 F s/p laparoscopic cholecystectomy POD#1 for gallstone pancreatitis Plan: -reg diet -pain control -antiemetics prn -Patient clear for discharge to home from surgical standpoint -f/u as outpatient with Dr. Burton within 1 week -NO heavy lifting for 3-4 weeks -March shower -keep area clean and dry -Discussed with Dr. Martin PGY2
[2019-03-30 07:59] LABS: BASO % 0.3 % (0.0-2.0); EOS # 0.1 K/uL (0.0-0.7); EOS % 1.2 % (0.0-4.0); HEMOGLOBIN 10.6 g/dL (11.0-16.0); LYMPH # 1.8 K/uL (1.0-4.3); MEAN CELL VOLUME 83.1 fL (81.0-99.0); MEAN CORPUSCULAR HEMOGLOBIN 27.5 pg (27.0-31.0); MEAN CORPUSCULAR HGB CONC 33.1 g/dL (33.0-37.0); MEAN PLATELET VOLUME 9.9 fL (7.2-11.7); MONO # 0.5 K/uL (0.0-0.8); MONO % 7.9 % (0.0-10.0); NEUT # 4.1 K/uL (1.8-7.0); NEUT % 62.6 % (50.0-75.0); NRBC % 0.1 % (0.0-2.0); RBC 3.85 Mil/uL (3.80-5.20); RED CELL DISTRIBUTION WIDTH 13.5 % (11.5-14.5); WHITE BLOOD COUNT 6.5 K/uL (4.8-10.8)
[2019-03-30 08:00] VITALS: BP 99/66; PULSE 73; RESP 18; TEMP 98.4; O2SAT 96
[2019-03-30 08:02] LABS: ALB/GLOB RATIO 1.2 (1.0-2.1); ALBUMIN 3.2 g/dL (3.5-5.0); ALT/SGPT 43 U/L (9-52); AST/SGOT 21 U/L (14-36); BLOOD UREA NITROGEN 4 mg/dL (7-17); CALCIUM 8.3 mg/dl (8.6-10.4); GFR NON-AFRICAN AMERICAN > 60
--- NOTE | 2019-03-30 09:34 | CP.PCM.DIS ---
<Froy Meeks - Last Filed: 03/30/19 15:47> Provider - Provider Date of Admission: 03/27/19 00:24 Attending physician: Caryn Barajas DO Consults: 03/27/19 07:00 Gastroenterology Consult Routine Comment: Consulting Provider: Lewis Ruby Consulting Physician: Lewis Ruby Reason for Consult: Acute pancreatitis 03/27/19 16:12 General Surgery Consult Routine Comment: Consulting Provider: Abraham Sanchez Consulting Physician: Abraham Sanchez Reason for Consult: Gen surg consult- symptomatic cholelithiasis, gallstone pancreatitis Time Spent in preparation of Discharge (in minutes): 45 Diagnosis - Discharge Diagnosis (1) Acute pancreatitis Status: Acute Hospital Course - Lab Results Lab Results: Most Recent Lab Values WBC 6.5 K/uL (4.8-10.8) 03/30/19 07:39 RBC 3.85 Mil/uL (3.80-5.20) 03/30/19 07:39 Hgb 10.6 g/dL (11.0-16.0) L 03/30/19 07:39 Hct 32.0 % (34.0-47.0) L 03/30/19 07:39 MCV 83.1 fL (81.0-99.0) 03/30/19 07:39 MCH 27.5 pg (27.0-31.0) 03/30/19 07:39 MCHC 33.1 g/dL (33.0-37.0) 03/30/19 07:39 RDW 13.5 % (11.5-14.5) 03/30/19 07:39 Plt Count 190 K/uL (130-400) 03/30/19 07:39 MPV 9.9 fL (7.2-11.7) 03/30/19 07:39 Neut % (Auto) 62.6 % (50.0-75.0) 03/30/19 07:39 Lymph % (Auto) 28.0 % (20.0-40.0) 03/30/19 07:39 Grant % (Auto) 7.9 % (0.0-10.0) 03/30/19 07:39 Eos % (Auto) 1.2 % (0.0-4.0) 03/30/19 07:39 Baso % (Auto) 0.3 % (0.0-2.0) 03/30/19 07:39 Neut # (Auto) 4.1 K/uL (1.8-7.0) 03/30/19 07:39 Lymph # (Auto) 1.8 K/uL (1.0-4.3) 03/30/19 07:39 Grant # (Auto) 0.5 K/uL (0.0-0.8) 03/30/19 07:39 Eos # (Auto) 0.1 K/uL (0.0-0.7) 03/30/19 07:39 Baso # (Auto) 0.0 K/uL (0.0-0.2) 03/30/19 07:39 PT 13.3 SECONDS (9.7-12.2) H 03/29/19 07:49 INR 1.2 03/29/19 07:49 APTT 31.2 SECONDS (21-34) 03/29/19 07:49 Sodium 138 mmol/L (132-148) 03/30/19 07:39 Potassium 3.8 mmol/L (3.6-5.2) 03/30/19 07:39 Chloride 105 mmol/L (98-107) 03/30/19 07:39 Carbon Dioxide 26 mmol/L (22-30) 03/30/19 07:39 Anion Gap 11 (10-20) 03/30/19 07:39 BUN 4 mg/dL (7-17) L 03/30/19 07:39 Creatinine 0.5 mg/dL (0.7-1.2) L 03/30/19 07:39 Est GFR ( Amer) > 60 03/30/19 07:39 Est GFR (Non-Af Amer) > 60 03/30/19 07:39 Random Glucose 78 mg/dL (65-105) 03/30/19 07:39 Calcium 8.3 mg/dl (8.6-10.4) L 03/30/19 07:39 Phosphorus 2.8 mg/dL (2.5-4.5) 03/30/19 07:39 Magnesium 1.9 mg/dL (1.6-2.3) 03/30/19 07:39 Total Bilirubin 0.4 mg/dL (0.2-1.3) 03/30/19 07:39 AST 21 U/L (14-36) 03/30/19 07:39 ALT 43 U/L (9-52) 03/30/19 07:39 Alkaline Phosphatase 67 U/L (38-126) 03/30/19 07:39 Lactate Dehydrogenase 364 U/L (313-618) 03/27/19 07:32 Total Protein 5.9 g/dL (6.3-8.3) L 03/30/19 07:39 Albumin 3.2 g/dL (3.5-5.0) L 03/30/19 07:39 Globulin 2.6 gm/dL (2.2-3.9) 03/30/19 07:39 Albumin/Globulin Ratio 1.2 (1.0-2.1) 03/30/19 07:39 Triglycerides 90 mg/dL (0-149) D 03/28/19 06:36 Cholesterol 137 mg/dL (0-199) 03/28/19 06:36 LDL Cholesterol Direct 93 mg/dL (0-129) 03/28/19 06:36 HDL Cholesterol 38 mg/dL (30-70) 03/28/19 06:36 Amylase 1459 U/L (30-110) H 03/27/19 07:32 Lipase 5763 U/L (23-300) H 03/27/19 07:32 Urine Color Yellow (YELLOW) 03/26/19 20:03 Urine Clarity Hazy (Clear) 03/26/19 20:03 Urine pH 9.0 (5.0-8.0) 03/26/19 20:03 Ur Specific [place] 1.010 (1.003-1.030) 03/26/19 20:03 Urine Protein Negative mg/dL (NEGATIVE) 03/26/19 20:03 Urine Glucose (UA) Normal mg/dL (Normal) 03/26/19 20:03 Urine Ketones Trace mg/dL (NEGATIVE) 03/26/19 20:03 Urine Blood Negative (NEGATIVE) 03/26/19 20:03 Urine Nitrate Negative (NEGATIVE) 03/26/19 20:03 Urine Bilirubin Negative (NEGATIVE) 03/26/19 20:03 Urine Urobilinogen 2.0 mg/dL (0.2-1.0) H 03/26/19 20:03 Ur Leukocyte Esterase Neg Elizabet/uL (Negative) 03/26/19 20:03 Urine WBC (Auto) < 1 /hpf (0-5) 03/26/19 20:03 Urine RBC (Auto) < 1 /hpf (0-3) 03/26/19 20:03 Ur Squamous Epith Cells 9 /hpf (0-5) H 03/26/19 20:03 Urine HCG, Qual Negative (NEGATIVE) 03/29/19 06:28 Blood Type O POSITIVE 03/29/19 07:49 Antibody Screen Negative 03/29/19 07:49 - Hospital Course Hospital Course: HPI Patient is a 34 year old female with no significant pmhx who presents tot he ED accompanied by her with complaints of severe abdominal pain that started this afternoon followed by many episodes of vomiting. Patient reports similar symptoms of epigastric pain that radiates bilaterally over the past month, lasting approx 15 minutes and then self resolve. Patient reports today's episode was greater in severity with pain in epigastrium radiating laterally as well as lower abdominal pain, and accompanied by 8 episodes of NBNB vomiting. Patient denies history of gallstones or pancreatitis, denies excessive alcohol consumption. Denies chest pain, SOB, diarrhea. Hospital Course Patient was hospitalized with presumed gallstone pancreatitis based on clinical picture and CT abdomen positive for stones in the gallbladder. Patient also does not have history of heavy ETOH use or on medications that cause pancreatitis. Initial lipase was >40,000, and follow-up lipase was 5763 on hospital day 2 with significant improvement in symptoms spontaneously - clinical team presumed patient may have passed an obstructing gallstone. Initial T Bili was WNL, but patient did have elevated LFTs which resolved over hospital course. GI was consulted, Dr. Ruby, in case need for ERCP. GI did not intervene, but recommended surgery eval for cholecystectomy. Surgery was consulted, Dr. Burton, who recommended lap gerson for gallstone pancreatitis. Patient had lap gerson with general surgery team on 03/29. Patient tolerated procedure well, with only appropriate pain at surgical site, and justin eerating regular diet post-op. Discharge Exam - Head Exam Head Exam: ATRAUMATIC, NORMOCEPHALIC - Eye Exam Eye Exam: EOMI, Normal appearance - ENT Exam ENT Exam: Mucous Membranes Moist - Respiratory Exam Respiratory Exam: NORMAL BREATHING PATTERN - Cardiovascular Exam Cardiovascular Exam: REGULAR RHYTHM, +S1, +S2 - GI/Abdominal Exam GI & Abdominal Exam: Normal Bowel Sounds, Tenderness (mild tenderness at surgical incision sites). absent: Distended, Firm, Guarding, Soft - Extremities Exam Extremities exam: normal inspection - Neurological Exam Neurological exam: Alert, CN II-XII Intact - Psychiatric Exam Psychiatric exam: Normal Affect, Normal Mood - Skin Skin Exam: Dry, Intact Discharge Plan - Follow Up Plan Condition: FAIR Disposition: HOME/ ROUTINE Instructions: Cholecystectomy (DC), Cholecystectomy, Laparoscopic Surgery, Nausea and Vomiting, Adult (DC), Managing Pain After Surgery, Pancreatitis (DC), Acute Abdominal Pain (DC) Additional Instructions: Patient is cleared for discharge per primary team. Please follow up with your primary care physician within 7-10 days of discharge. Please make sure to follow up outpatient with Dr. Burton within 1 week NO heavy lifting for 3-4 weeks You make shower, but make sure to keep area clean and dry Please return to ER if symptoms recur or worsen. El paciente est autorizado para el shira por equipo primario. Por favor matilda un seguimiento con leon mdico de atencin primaria dentro de los 7 a 10 polk posteriores al shira. Por favor, asegrese de hacer un seguimiento ambulatorio con el Dr. Burton dentro de 1 semana NO levantar objetos pesados ??tarik 3-4 semanas Usted hace la ducha, eboni asegrese de mantener el giana limpia y seca Por favor regrese a la shanda de emergencias si los sntomas reaparecen o empeoran. Referrals: [facility] at [facility] [Outside] Abraham Sanchez MD [Staff Provider] - <Caryn Barajas V - Last Filed: 03/30/19 16:41> Provider - Provider Date of Admission: 03/27/19 00:24 Attending physician: Caryn Barajas DO Consults: 03/27/19 07:00 Gastroenterology Consult Routine Comment: Consulting Provider: Lewis Ruby Consulting Physician: Lewis Ruby Reason for Consult: Acute pancreatitis 03/27/19 16:12 General Surgery Consult Routine Comment: Consulting Provider: Abraham Sanchez Consulting Physician: Abraham Sanchez Reason for Consult: Gen surg consult- symptomatic cholelithiasis, gallstone pancreatitis Hospital Course - Lab Results Lab Results: Most Recent Lab Values WBC 6.5 K/uL (4.8-10.8) 03/30/19 07:39 RBC 3.85 Mil/uL (3.80-5.20) 03/30/19 07:39 Hgb 10.6 g/dL (11.0-16.0) L 03/30/19 07:39 Hct 32.0 % (34.0-47.0) L 03/30/19 07:39 MCV 83.1 fL (81.0-99.0) 03/30/19 07:39 MCH 27.5 pg (27.0-31.0) 03/30/19 07:39 MCHC 33.1 g/dL (33.0-37.0) 03/30/19 07:39 RDW 13.5 % (11.5-14.5) 03/30/19 07:39 Plt Count 190 K/uL (130-400) 03/30/19 07:39 MPV 9.9 fL (7.2-11.7) 03/30/19 07:39 Neut % (Auto) 62.6 % (50.0-75.0) 03/30/19 07:39 Lymph % (Auto) 28.0 % (20.0-40.0) 03/30/19 07:39 Grant % (Auto) 7.9 % (0.0-10.0) 03/30/19 07:39 Eos % (Auto) 1.2 % (0.0-4.0) 03/30/19 07:39 Baso % (Auto) 0.3 % (0.0-2.0) 03/30/19 07:39 Neut # (Auto) 4.1 K/uL (1.8-7.0) 03/30/19 07:39 Lymph # (Auto) 1.8 K/uL (1.0-4.3) 03/30/19 07:39 Grant # (Auto) 0.5 K/uL (0.0-0.8) 03/30/19 07:39 Eos # (Auto) 0.1 K/uL (0.0-0.7) 03/30/19 07:39 Baso # (Auto) 0.0 K/uL (0.0-0.2) 03/30/19 07:39 PT 13.3 SECONDS (9.7-12.2) H 03/29/19 07:49 INR 1.2 03/29/19 07:49 APTT 31.2 SECONDS (21-34) 03/29/19 07:49 Sodium 138 mmol/L (132-148) 03/30/19 07:39 Potassium 3.8 mmol/L (3.6-5.2) 03/30/19 07:39 Chloride 105 mmol/L (98-107) 03/30/19 07:39 Carbon Dioxide 26 mmol/L (22-30) 03/30/19 07:39 Anion Gap 11 (10-20) 03/30/19 07:39 BUN 4 mg/dL (7-17) L 03/30/19 07:39 Creatinine 0.5 mg/dL (0.7-1.2) L 03/30/19 07:39 Est GFR ( Amer) > 60 03/30/19 07:39 Est GFR (Non-Af Amer) > 60 03/30/19 07:39 Random Glucose 78 mg/dL (65-105) 03/30/19 07:39 Calcium 8.3 mg/dl (8.6-10.4) L 03/30/19 07:39 Phosphorus 2.8 mg/dL (2.5-4.5) 03/30/19 07:39 Magnesium 1.9 mg/dL (1.6-2.3) 03/30/19 07:39 Total Bilirubin 0.4 mg/dL (0.2-1.3) 03/30/19 07:39 AST 21 U/L (14-36) 03/30/19 07:39 ALT 43 U/L (9-52) 03/30/19 07:39 Alkaline Phosphatase 67 U/L (38-126) 03/30/19 07:39 Lactate Dehydrogenase 364 U/L (313-618) 03/27/19 07:32 Total Protein 5.9 g/dL (6.3-8.3) L 03/30/19 07:39 Albumin 3.2 g/dL (3.5-5.0) L 03/30/19 07:39 Globulin 2.6 gm/dL (2.2-3.9) 03/30/19 07:39 Albumin/Globulin Ratio 1.2 (1.0-2.1) 03/30/19 07:39 Triglycerides 90 mg/dL (0-149) D 03/28/19 06:36 Cholesterol 137 mg/dL (0-199) 03/28/19 06:36 LDL Cholesterol Direct 93 mg/dL (0-129) 03/28/19 06:36 HDL Cholesterol 38 mg/dL (30-70) 03/28/19 06:36 Amylase 1459 U/L (30-110) H 03/27/19 07:32 Lipase 5763 U/L (23-300) H 03/27/19 07:32 Urine Color Yellow (YELLOW) 03/26/19 20:03 Urine Clarity Hazy (Clear) 03/26/19 20:03 Urine pH 9.0 (5.0-8.0) 03/26/19 20:03 Ur Specific [place] 1.010 (1.003-1.030) 03/26/19 20:03 Urine Protein Negative mg/dL (NEGATIVE) 03/26/19 20:03 Urine Glucose (UA) Normal mg/dL (Normal) 03/26/19 20:03 Urine Ketones Trace mg/dL (NEGATIVE) 03/26/19 20:03 Urine Blood Negative (NEGATIVE) 03/26/19 20:03 Urine Nitrate Negative (NEGATIVE) 03/26/19 20:03 Urine Bilirubin Negative (NEGATIVE) 03/26/19 20:03 Urine Urobilinogen 2.0 mg/dL (0.2-1.0) H 03/26/19 20:03 Ur Leukocyte Esterase Neg Elizabet/uL (Negative) 03/26/19 20:03 Urine WBC (Auto) < 1 /hpf (0-5) 03/26/19 20:03 Urine RBC (Auto) < 1 /hpf (0-3) 03/26/19 20:03 Ur Squamous Epith Cells 9 /hpf (0-5) H 03/26/19 20:03 Urine HCG, Qual Negative (NEGATIVE) 03/29/19 06:28 Blood Type O POSITIVE 05/19/19 07:49 Antibody Screen Negative 03/29/19 07:49 Attending/Attestation - Attestation I have personally seen and examined this patient.: Yes I have fully participated in the care of the patient.: Yes I have reviewed all pertinent clinical information, including history, physical exam and plan: Yes Notes (Text): This is a young lady with no prior medical history except for obesity who underwent hospitalization for gallstone pancreatitis and then underwent a lap gerson. Patient is postoperative day 1 lap gerson per surgery standpoint patient is stable to be discharged and follow-up in the office within 1 week. Patient may shower daily surgical sites are dry and no heavy lifting for 3 to 4 weeks. I met the patient today for the first time she is a very nice young lady. Physical exam: in no acute distress awake alert oriented x3 heart S1-S2 regular rate and rhythm no murmur no gallop no rubs lungs clear to auscultation bilaterally no wheezing rales or rhonchi abdomen is soft, mild tenderness only localized to the surgical incision sites there is no associated erythema there is no pus there is no guarding there is no suprapubic tenderness. Extremities no cyanosis no clubbing no edema bilateral lower extremities We did discuss discharge instructions in detail with the patient as well as her who was present patient understood instructions and is aware to follow- up with the surgeon upon discharge. This is a summary patient hospitalization please refer to EMR for full details record thank you. Discharge diagnoses: 1. Gallstone pancreatitis GI and general surgery on board Patient underwent lap gerson stable from surgery standpoint for discharge Patient to follow-up with surgery within 1 week of discharge surgery instructions in detail in the progress note dated for today as well. 2. Obesity Diet and exercise modifications
[2019-03-30] MEDS ORDERED: Potassium Chloride 20 mEq ER Tab PO SCH (10:00)
== END 2019-03-30 13:01 | disposition home or self-care (01) | DRG 419 ==
LOC: C.ER 18:00 → C.6T 03-27 00:24
PROVIDERS: ADMIT Hospitalist; ATTEND Hospitalist
PROC: 0FT44ZZ Resection of Gallbladder, Percutaneous Endoscopic Approach (ICD-10-PCS; principal; 2019-03-29 13:00)
DX: K85.10 Biliary acute pancreatitis without necrosis or infection (principal); K80.20 Calculus of gallbladder without cholecystitis without obstruction; E66.9 Obesity, unspecified; Z68.31 Body mass index [BMI] 31.0-31.9, adult; K59.00 Constipation, unspecified